=== PATIENT | male | born 1980 | race Caucasian/White ===

== ENCOUNTER 2018-08-11 14:50 | Inpatient (IN) | payer MEDICARE, OTHER ==
--- NOTE | 2018-08-11 17:19 | PDOC ---
History of Present Illness - History of Present Illness Initial Comments: Jamaal Warner is a 38yo man with a PMH of HTN, HLD, KADE, CKD and chronic back pain that radiates down b/l LE who presents reporting worsening bilateral leg weakness over several days. He reports that he has been diagnosed with herniated discs in his low back and states that he chronically has low back and radiating lower extremity pain. The pain radiates from the upper thigh down the outside of his legs, and he has been experiencing this same pain recently. However, the weakness is new. He is able to stand and ambulate a few steps, but he reports that he feels "shaky" and as though he is going to fall down. He says that even when he is just sitting up, his arms shake if he needs to support himself. Mr Warner reports that he has been drinking significantly less fluid lately, and he also reports a recent GI illness with vomiting 1-2 weeks ago. However, he has not had any other recent symptoms. He reports that he has been taking all of his medications and has been feeling well. However, he is worried about his creatinine, which is normally around 4.5 or so as he feels dehydrated and has not seen his ventilated rib fitter (out of [place]) in a while for blood tests. <Katey Dias - Last Filed: 08/11/18 18:31> <Torrie Zurita - Last Filed: 08/11/18 19:04> - General Chief Complaint: Lethargy Stated Complaint: WEAKNESS Time Seen by Provider: 08/11/18 16:19 Attending Attestation - Resident Resident Name: Katey Dias - ED Attending Attestation I have performed the following: I have examined & evaluated the patient, The case was reviewed & discussed with the resident, I agree w/resident's findings & plan, Exceptions are as noted - HPI HPI: Morbidly obese 38 y/o male complained of progressive weakness, inability to stand up worse in the last week. Has been followed by Senior Credit Officer at [facility] in [facility]. 08/11/18 18:55 - Physicial Exam PE: Morbidly obese individual extreme weakness equal breath sounds Obese abdomen Edematous extremities Full cooperating and understanding his status 08/11/18 18:57 - Critical Care Time Total Critical Care Time: 45 Critical Care Statement: The care of this patient involved high complexity decision making to prevent further life threatening deterioration of the patient 's condition and/or to evaluate & treat vital organ system(s) failure or risk of failure. - Medical Decision Making Due to the severity of his condition patient was started on medication to control his Hyperkalemia Arrangements , consults made to be transfered to ICU at [facility] via ALS ambulance. 08/11/18 19:01 <Torrie Zurita - Last Filed: 08/11/18 19:04> Past History - Past Medical History COPD: No Disorders: Yes (AZOTEMIA) HTN: Yes Hypercholesterolemia: Yes - Immunization History Td Vaccination: Yes Immunization Up to Date: Yes - Suicide/Smoking/Psychosocial Hx Smoking Status: No Smoking History: Current some day smoker Have you smoked in the past 12 months: Yes Number of Cigarettes Smoked Daily: 0 Cigars Per Day: 1 Information on smoking cessation initiated: Yes 'Breaking Loose' booklet given: 02/14/16 Hx Alcohol Use: No Drug/Substance Use Hx: No Substance Use Type: None <Katey Dias - Last Filed: 08/11/18 18:31> <Torrie Zurita - Last Filed: 08/11/18 19:04> - Past Medical History Allergies/Adverse Reactions: Allergies Allergy/AdvReac Type Severity Reaction Status Date / Time No Known Allergies Allergy Verified 08/11/18 15:20 Home Medications: Ambulatory Orders Febuxostat [Uloric -] 80 mg PO DAILY 12/14/11 Valsartan [Diovan] 160 mg PO DAILY 12/14/11 Fenofibric Acid [Trilipix -] 135 mg PO DAILY 10/30/12 Nebivolol [Bystolic -] 10 mg PO DAILY 10/30/12 Torsemide [Demadex -] 20 mg PO ASDIR PRN 08/11/18 Review of Systems - Review of Systems Comments:: General: No fevers, no chills, no weight or appetite change, no malaise HEENT: No changes in vision, no changes in hearing, no congestion, no sore throat CV: No chest pain, no palpitations, no LE edema. h/o HTN Pulm: No SOB, no cough, no wheezing GI: Recent vomiting, no change in bowel habits, no melena : h/o CKD, +makes urine Musc: No back pain, no joint swelling, no recent injury. h/o low back disc herniation, BLE radiating pain, BLE weakness Skin: No rash, no lesions, no erythema Endo: No excessive thirst, no heat/cold intolerance Heme: No unusual bruising or bleeding, no swollen glands Neuro: No syncope, no numbness/tingling, no focal weakness Vasc: No claudication Psych: No recent change in mood, no SI or HI <Katey Dias - Last Filed: 08/11/18 18:31> *Physical Exam - Vital Signs Last Vital Signs Temp Pulse Resp BP Pulse Ox 97.5 F L 98 H 18 138/81 99 08/11/18 15:13 08/11/18 16:11 08/11/18 16:11 08/11/18 16:11 08/11/18 16:11 - Physical Exam Comments: General: Uncomfortable, morbidly obese, appears older than stated age HEENT: PERRL, EOMI, MMM, voice normal, normal neck ROM, no LAD Cards: RRR Pulm: Comfortable on room air, distant breaths sounds Abd: Soft, nontender, nondistended : No CVA tenderness Back: No TTP along spine or paraspinal muscles Ext: Atraumatic. No LE edema. Strength intact at b/l knees and ankles, but unable to hold BLE up off bed. Visible trembling in extremities when bearing weight Vasc: Extremities WWP. Skin: Normal color, no rashes or lesions Neuro: A&Ox3, CN grossly intact, normal speech, motor/sensory grossly intact and symmetric Psych: Mood appropriate to situation <Katey Dias - Last Filed: 08/11/18 18:31> - Vital Signs Last Vital Signs Temp Pulse Resp BP Pulse Ox 97.5 F L 98 H 18 138/81 99 08/11/18 15:13 08/11/18 16:11 08/11/18 16:11 08/11/18 16:11 08/11/18 16:11 <Torrie Zurita S - Last Filed: 08/11/18 19:04> Moderate Sedation - Procedure Monitoring Vital Signs: Procedure Monitoring Vital Signs Temperature 97.5 F L 08/11/18 15:13 Pulse Rate 98 H 08/11/18 16:11 Respiratory Rate 18 08/11/18 16:11 Blood Pressure 138/81 08/11/18 16:11 O2 Sat by Pulse Oximetry (%) 99 08/11/18 16:11 <Katey Dias - Last Filed: 08/11/18 18:31> - Procedure Monitoring Vital Signs: Procedure Monitoring Vital Signs Temperature 97.5 F L 08/11/18 15:13 Pulse Rate 98 H 08/11/18 16:11 Respiratory Rate 18 08/11/18 16:11 Blood Pressure 138/81 08/11/18 16:11 O2 Sat by Pulse Oximetry (%) 99 08/11/18 16:11 <Torrie Zurita S - Last Filed: 08/11/18 19:04> ED Treatment Course - LABORATORY CBC & Chemistry Diagram: 08/11/18 17:10 08/11/18 17:10 <Katey Dias - Last Filed: 08/11/18 18:31> - LABORATORY CBC & Chemistry Diagram: 08/11/18 17:10 08/11/18 17:10 - ADDITIONAL ORDERS Additional order review: Laboratory Results 08/11/18 17:10 Sodium 128 L Potassium 8.2 H* Chloride 102 Carbon Dioxide 8 L Anion Gap 18 H BUN 195 H* Creatinine 18.5 H* Creat Clearance w eGFR 2.90 Random Glucose 125 H Calcium 5.7 L* Total Bilirubin 0.5 AST 153 H ALT 109 H Alkaline Phosphatase 45 Creatine Kinase 8230 H Total Protein 7.5 Albumin 3.3 L 08/11/18 17:10 RBC 3.27 L MCV 88.5 MCHC 33.0 RDW 12.5 D MPV 8.7 D Neutrophils % 89.9 H D Lymphocytes % 5.0 L D Monocytes % 3.9 Eosinophils % 0.9 Basophils % 0.3 - Medications Given in the ED: ED Medications Discontinued Medications Generic Name Dose Route Start Last Admin Trade Name Freq PRN Reason Stop Dose Admin Calcium Gluconate 1,000 mg 08/11/18 18:18 08/11/18 18:50 Calcium Gluconate 10% - IVPB 08/11/18 18:19 1,000 mg ONCE ONE Administration Dextrose 25 gm 08/11/18 18:18 08/11/18 18:42 D50w (Vial) - IVPUSH 08/11/18 18:19 25 gm NOW ONE Administration Insulin Human Regular 5 units 08/11/18 18:18 08/11/18 18:43 Novolin R Vial *For Ivpush Or Iv Drip Only* IVPUSH 08/11/18 18:19 5 units ONCE ONE Administration Sodium Polystyrene Sulfonate 30 gm 08/11/18 18:20 08/11/18 18:40 Kayexalate - PO 08/11/18 18:21 30 gm ONCE ONE Administration <YudithRem S - Last Filed: 08/11/18 19:04> Medical Decision Making - Medical Decision Making 08/11/18 17:00 Jamaal Warner is a 38yo man with a PMH of HTN, HLD, KADE, CKD and chronic back pain that radiates down b/l LE who presents reporting worsening bilateral leg weakness over several days. - No red flag symptoms such as numbness, saddle anesthesia, bowel/bladder incontinence - Per patient, only the weakness is new. He does report recent illness and he has been "laying around" most of the time. Given habitus, could be due to pressure on lower back or previously diagnosed herniated discs. Also notes decreased fluid intake recently. Could have rhabdo or worsening kidney function - Able to stand, strength 5/5 and equal b/l in lower extremities. Though patient subjectively feels weak, exam is reassuring. Most likely due to his chronic back and BLE pain 08/11/18 18:39 - Labs with significant abnormalities - Cr 18.5, BUN 195, K 8.2, Na 128, Bicarb 8 - Insulin, dextrose, calcium gluconate, kayexalate for hyperkalemia. EKG reviewed, notes peaked t waves - ICU contacted for admission for urgent dialysis. Spoke to Dr Narvaez, will accept - Spoke to Dr Brown (nephrology) regional truck driver for Dr Dimas. Will plan to see pt when in ICU. Requests ABG, boyd placement, bicarb - Hospitalist contacted for admission - Cardiology consulted due to peaked t-waves on EKG <Katey Dias - Last Filed: 08/11/18 18:31> *DC/Admit/Observation/Transfer - Discharge Dispostion Decision to Admit order: Yes <Katey Dias - Last Filed: 08/11/18 18:31> <Torrie Zurita S - Last Filed: 08/11/18 19:04> Diagnosis at time of Disposition: Hyperkalemia, Acute renal failure - Discharge Dispostion Condition at time of disposition: Critical - Referrals Referrals: Saul Warner MD [Primary Care Provider] - - Patient Instructions - Post Discharge Activity
[2018-08-11 17:37] LABS: BASO % 0.3 % (0-2.0); EOS % 0.9 % (0-4.5); HEMATOCRIT 28.9 % (35.4-49); HEMOGLOBIN 9.5 GM/dl (11.7-16.9); MCH 29.1 pg (25.7-33.7); MEAN CELL VOLUME 88.5 fl (80-96); MEAN PLT VOLUME 8.7 fl (7.5-11.1); PLATELET COUNT 381 K/MM3 (134-434); RBC 3.27 M/mm3 (4.00-5.60); RDW 12.5 % (11.9-15.9); WHITE BLOOD COUNT 12.4 K/mm3 (4.0-10.8)
[2018-08-11 17:40] LABS: MONO % 3.9 % (3.8-10.2); NEUT % 89.9 % (42.8-82.8)
[2018-08-11 17:46] LABS: ALBUMIN 3.3 g/dl (3.4-5.0); ALK PHOS 45 U/L (45-117); ANION GAP 18 MMOL/L (8-16); BILIRUBIN,TOTAL 0.5 mg/dl (0.2-1); CHLORIDE 102 mmol/L (98-107); CO2 8 mmol/L (21-32); GLUCOSE,RANDOM 125 mg/dl (74-106); SGOT/AST 153 U/L (15-37); SGPT/ALT 109 U/L (13-61); SODIUM 128 mmol/L (136-145); TOT PROT 7.5 g/dl (6.4-8.2)
[2018-08-11 18:07] LABS: BLOOD UREA NITROGEN 195 mg/dl (7-18); CREATININE 18.5 mg/dl (0.55-1.3)
[2018-08-11 18:08] LABS: CALCIUM 5.7 mg/dl (8.5-10); POTASSIUM 8.2 mmol/L (3.5-5.1)
[2018-08-11] MEDS ORDERED: CALCIUM GLUCONATE 10% - 1,000 MG/10 ML VIAL IVPB ONE (18:18)
[2018-08-11] MEDS ORDERED: INSULIN REGULAR HUMAN 100 UNITS/ML *VIAL IVPUSH ONE ×2 (18:18→22:30)
[2018-08-11] MEDS ORDERED: DEXTROSE 50%-WATER - 25 GM/50 ML VIAL IVPUSH ONE ×2 (18:18→22:30)
[2018-08-11] MEDS ORDERED: SODIUM POLYSTYRENE SULFONATE 15 GM/60 ML BOTTLE PO ONE ×2 (18:20→22:45)
[2018-08-11] MEDS ORDERED: CALCIUM GLUCONATE 10% - 1,000 MG/10 ML VIAL ONE (18:29)
[2018-08-11] MEDS ORDERED: DEXTROSE 50%-WATER 25 GM/50 ML DISP.SYRIN ONE (18:30)
[2018-08-11] MEDS ORDERED: SODIUM BICARBONATE 4.2% 5 MEQ/10 ML DISP.SYRIN IVPUSH ONE (18:30)
[2018-08-11] MEDS ORDERED: SODIUM POLYSTYRENE SULFONATE 15 GM/60 ML BOTTLE ONE (18:30)
[2018-08-11] MEDS ORDERED: INSULIN REGULAR HUMAN 100 UNITS/ML *VIAL ONE (18:33)
[2018-08-11] MEDS ORDERED: SODIUM BICARBONATE 8.4% 50 MEQ/50 ML VIAL ONE (18:54)
[2018-08-11 19:34] LABS: URINE APPEARANCE Clear; URINE BILIRUBIN Negative (NEGATIVE); URINE COLOR Yellow; URINE GLUCOSE (UA) Negative (NEGATIVE); URINE KETONE Negative (NEGATIVE); URINE LEUK ESTERASE 1+ (NEGATIVE); URINE NITRITE Negative (NEGATIVE); URINE PROTEIN 3+ (NEGATIVE); URINE UROBILINOGEN 0.2 (0.2-1.0)
[2018-08-11] MEDS ORDERED: SODIUM BICARBONATE 8.4% 50 MEQ/50 ML DISP.SYRIN IVPUSH ONE (19:53)
[2018-08-11 19:55] LABS: AMORP URATES 4+ /hpf (NONE SEEN)
[2018-08-11 19:56] LABS: URINE BACTERIA 4+ /hpf (NEGATIVE)
[2018-08-11 20:05] LABS: ANION GAP 19 MMOL/L (8-16); CHLORIDE 103 mmol/L (98-107); CO2 9 mmol/L (21-32); GLUCOSE,RANDOM 99 mg/dl (74-106); SODIUM 131 mmol/L (136-145)
[2018-08-11 20:16] LABS: BLOOD UREA NITROGEN 200 mg/dl (7-18)
[2018-08-11 20:17] LABS: CREATININE 17.9 mg/dl (0.55-1.3); POTASSIUM 7.6 mmol/L (3.5-5.1)
[2018-08-11 20:18] LABS: CALCIUM 5.9 mg/dl (8.5-10)
[2018-08-11] MEDS ORDERED: ACETAMINOPHEN INJECTION 100 ML IVPB ONE (20:34)
--- NOTE | 2018-08-11 20:46 | CONSULT ---
Consult Consult Specialty:: Nephrology ( [facility]/ [facility]) Reason for Consultation:: Renal failure, severe azotemia, Hyperkalemia - History of Present Illness Chief Complaint: Morbidly obese male patient brought [place] [facility] with generalized weakness, especially of the legs. History of Present Illness: Jamaal Warner is a 38yo man with a PMH of HTN, HLD, KADE, CKD, Gout and Chronic back pain that radiates down b/l LE who presents reporting worsening bilateral leg weakness over several days. He has herniated discs in his low back and states that he chronically has low back and radiating lower extremity pain. The pain radiates from the upper thigh down the outside of his legs, and he has been experiencing this same pain recently. The weakness is new. He is able to stand and ambulate a few steps, but he reports that he feels "shaky" and as though he is going to fall down. He says that even when he is just sitting up, his arms shake if he needs to support himself. He had a kidney [place] [facility] [place] 3 years ago, but had not followed up since. He is not quite sure of the biopsy results. He had not been seeing a Vp Biology in [place]. His PCP is Dr. Warner and he also sees dr. Lozada. Mr Warner reports that he has been drinking significantly less fluid lately, and he also reports a recent GI illness with vomiting 1-2 weeks ago. However, he has not had any other recent symptoms. He reports that he has been taking all of his medications and has been feeling well. However, he is worried about his creatinine, which is normally around 4.5 or so as he feels dehydrated and has not seen his Vp Biology (out [facility] ) in a while for blood tests. The last blood work is 3 years ago. Denies any urinary incontinence. no h/o hematuria. - History Source History Provided By: Patient, Family Member Limitations to Obtaining History: No Limitations - Past Medical History Gastrointestinal: No: Constipation, Hiatal Hernia, Peptic Ulcer Disease, Ulcerative Colitis Renal/: Yes: Renal Failure Heme/Onc: Yes: Anemia Psych: Yes: Anxiety Musculoskeletal: Yes: Chronic low back pain, Osteoarthritis - Past Surgical History Past Surgical History: Yes: Joint Replacement - Alcohol/Substance Use Hx Alcohol Use: No - Smoking History Smoking history: Current some day smoker Have you smoked in the past 12 months: Yes Aproximately how many cigarettes per day: 0 Home Medications - Allergies Allergies/Adverse Reactions: Allergies Allergy/AdvReac Type Severity Reaction Status Date / Time No Known Allergies Allergy Verified 08/11/18 15:20 - Home Medications Home Medications: Ambulatory Orders Febuxostat [Uloric -] 80 mg PO DAILY 12/14/11 Valsartan [Diovan] 160 mg PO DAILY 12/14/11 Fenofibric Acid [Trilipix -] 135 mg PO DAILY 10/30/12 Nebivolol [Bystolic -] 10 mg PO DAILY 10/30/12 Torsemide [Demadex -] 20 mg PO ASDIR PRN 08/11/18 Review of Systems - Review of Systems Constitutional: reports: Malaise, Weakness Eyes: reports: No Symptoms HENT: reports: No Symptoms Neck: reports: No Symptoms Cardiovascular: reports: Shortness of Breath Respiratory: reports: SOB Gastrointestinal: denies: Constipation, Diarrhea Musculoskeletal: reports: Back Pain, Decreased ROM, Extremity Pain, Joint Pain, Muscle Pain Neurological: reports: Unsteady Gait Physical Exam Vital Signs: Vital Signs Temperature 97.5 F L 08/11/18 15:13 Pulse Rate 104 H 08/11/18 19:30 Respiratory Rate 18 08/11/18 19:30 Blood Pressure 152/96 08/11/18 19:30 O2 Sat by Pulse Oximetry (%) 97 08/11/18 19:30 Constitutional: Yes: Well Nourished, Anxious Eyes: Yes: Conjunctiva Clear HENT: Yes: Atraumatic, Normocephalic Neck: Yes: Trachea Midline Cardiovascular: Yes: Regular Rate and Rhythm, Tachycardia, S1, S2 Respiratory: Yes: Diminished, Poor Air Entry Gastrointestinal: Yes: Soft, Abdomen, Obese, Distention, Hypoactive Bowel Sounds Renal/: Yes: Oreilly Present. No: CVA Tenderness - Left, CVA Tenderness - Right Edema: No Psychiatric: Yes: Alert, Oriented Labs: CBC, BMP 08/11/18 17:10 08/11/18 19:35 Problem List - Problems (1) CKD (chronic kidney disease) stage 5, GFR less than 15 ml/min Code(s): N18.5 - CHRONIC KIDNEY DISEASE, STAGE 5 (2) Hypocalcemia Code(s): E83.51 - HYPOCALCEMIA (3) Acute renal failure Code(s): N17.9 - ACUTE KIDNEY FAILURE, UNSPECIFIED (4) Hyperkalemia Code(s): E87.5 - HYPERKALEMIA (5) Anemia Code(s): D64.9 - ANEMIA, UNSPECIFIED Assessment/Plan 38 y/o male with h/o CKD,with erratic medical follow up, admitted with profound azotemia, Hyperkalemia, metabolic acidosis and symptoms of uremia. Severe Azotemia possibly progression of his underlying CKd, but one can not totally r/o a superimposed Acute Kidney Injury. Profound Hyperkalemia. This is worsened by the Metabolic acidosis. PLAN: The patient needs EMERGENCY DIALYSIS in view of the azotemia, hyperkalemia and Metabolic acidosis. Vascular evaluation to place a Femoral catheter for dialysis. Cautious Hydration. Detailed w/u once the patient is stable. Orders for HD written and reviewed with the HD nurse. Jaimie Sanches MD
[2018-08-11] MEDS ORDERED: ALBUTEROL SO4 0.083% IH SOL 2.5 MG/3 ML VIAL.NEB. NEB PRN (20:51)
[2018-08-11] MEDS ORDERED: ACETAMINOPHEN 1000 MG/100 ML VIAL (NON FORMULARY) IVPB ONE (21:02)
--- NOTE | 2018-08-11 21:42 | HP ---
Admitting History and Physical - Admission Chief Complaint: Lower extremity weakness History of Present Illness: 38yo man with a PMH of HTN, HLD, KADE, CKD and chronic back pain with radiculopathy presents to ED due to worsening malaise and paresthesias in b/l LEs. PT reports viral syndrome approximately two weeks ago where he experienced nausea, fever and chills. Symptoms resolved after rest and oral hydration. However, He reports cutting back on his oral intake due to his underlying kidney disease. Over the last three days, Mr. Warner reports "feeling unsteady" on his feet, associated with progressive paresthesias and generalized weakness. He has never experienced symptoms like this prior and Pt was taken to ED on the afternoon of 08/11 by a cousin. In ED vitals were HR 98bpm, BP 138/81, RR 18, T 97.5, O2 sat 99%. Routine labs: BUN/CR 195/18.5, K 8.2, Na 128, serum bicarb 8, calcium 5.7, AST/ ALT 153/109. CPK 8230 Insulin, dextrose, calcium gluconate, kayexalate for hyperkalemia. EKG SR 96bpm with peaked t waves. Nephrology was consulted for acute renal failure with hyperkalemia, recommendation was ICU admission for urgent dialysis. 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: Alzheimer's, CVA, Dementia, Migraine, Multiple Sclerosis, Peripheral Neuropathy, Parkinson's, Seizure, Syncope, TIA, Vertigo, Other Cardiovascular: Yes: HTN, Hyperlipdemia Gastrointestinal: No: Constipation, Hiatal Hernia, Peptic Ulcer Disease, Ulcerative Colitis Renal/: Yes: Renal Failure, Renal Inusuff Heme/Onc: Yes: Anemia Psych: Yes: Anxiety Musculoskeletal: Yes: Chronic low back pain, Osteoarthritis Rheumatology: Yes: Gout ENT: Yes: Allergic Rhinitis Additional Past Medical History: herniated disc lumbar spine - Past Surgical History Past Surgical History: Yes: Joint Replacement (Left knee arthroscopic surgery 2005) - Smoking History Smoking history: Current some day smoker Have you smoked in the past 12 months: No Aproximately how many cigarettes per day: 0 (smokes a cigar once every two weeks ) - Alcohol/Substance Use Hx Alcohol Use: No History of Substance Use: reports: None - Social History Usual Living Arrangement: Yes: With Parent ADL: Independent Occupation: on disability due to chronic back pain History of Recent Travel: No Other Social History: Exercise: none Home Medications - Allergies Allergies/Adverse Reactions: Allergies Allergy/AdvReac Type Severity Reaction Status Date / Time No Known Allergies Allergy Verified 08/11/18 15:20 - Home Medications Home Medications: Ambulatory Orders Febuxostat [Uloric -] 80 mg PO DAILY 12/14/11 Valsartan [Diovan] 160 mg PO DAILY 12/14/11 Fenofibric Acid [Trilipix -] 135 mg PO DAILY 10/30/12 Nebivolol [Bystolic -] 10 mg PO DAILY 10/30/12 Torsemide [Demadex -] 20 mg PO ASDIR PRN 08/11/18 Family Disease History - Family Disease History Family History: Unremarkable Review of Systems - Review of Systems Constitutional: reports: Malaise, Weakness Eyes: reports: No Symptoms HENT: reports: No Symptoms Neck: reports: No Symptoms Cardiovascular: reports: No Symptoms Respiratory: reports: Snoring Genitourinary: reports: No Symptoms Breasts: reports: No Symptoms Reported Musculoskeletal: reports: Back Pain, Muscle Weakness Integumentary: reports: No Symptoms Neurological: reports: Parasthesia, Unsteady Gait, Weakness Endocrine: reports: No Symptoms Hematology/Lymphatic: reports: No Symptoms Psychiatric: reports: No Symptoms Physical Examination Vital Signs: Vital Signs Temperature 97.5 F L 08/11/18 15:13 Pulse Rate 105 H 08/11/18 20:30 Respiratory Rate 18 08/11/18 20:30 Blood Pressure 123/68 08/11/18 20:30 O2 Sat by Pulse Oximetry (%) 97 08/11/18 20:30 Constitutional: Yes: No Distress, Calm Eyes: Yes: Conjunctiva Clear, EOM Intact, PERRL HENT: Yes: Atraumatic, Normocephalic Neck: Yes: Supple, Trachea Midline Cardiovascular: Yes: Tachycardia Respiratory: Yes: Regular, CTA Bilaterally, Diminished (at the bases) Gastrointestinal: Yes: Normal Bowel Sounds, Soft, Abdomen, Obese ...Rectal Exam: Yes: Deferred Renal/: Yes: Oreilly Present Musculoskeletal: Yes: Back Pain, Muscle Weakness Extremities: Yes: Other (scattered areas of excoriation b/l LEs) Edema: No Peripheral Pulses WNL: Yes Peripheral Pulses: Left Radial: 2+, Right Radial: 2+, Left Doralis Pedis: 2+, Right Dorsalis Pedis: 2+ Neurological: Yes: Alert, Oriented ...Motor Strength: WNL Psychiatric: Yes: Alert, Oriented Labs: CBC, BMP 08/11/18 17:10 08/11/18 19:35 Imaging - Results Chest X-ray: Image Reviewed (CXR 08/11/18 (my read) increased pulm congestion) Problem List - Problems (1) Prophylactic measure Assessment/Plan: SC heparin TID SCDs bowel regimen with senna and colace Code(s): Z29.9 - ENCOUNTER FOR PROPHYLACTIC MEASURES, UNSPECIFIED (2) HTN (hypertension) Assessment/Plan: hold valsartan, current BP range (97/78--152/96) pt tachycardic, will start low dose BB. goal BP < 130/80 cardiac/renal diet Code(s): I10 - ESSENTIAL (PRIMARY) HYPERTENSION (3) Acute renal failure Assessment/Plan: admit to ICU for urgent dialysis pt amenable to vascath insertion for CRRT nephrology recommendations appreciated fluid restrict 1.5L per day renal sono Code(s): N17.9 - ACUTE KIDNEY FAILURE, UNSPECIFIED (4) CKD (chronic kidney disease) stage 5, GFR less than 15 ml/min Assessment/Plan: all meds at renal dose hold valsartan and torsemide Code(s): N18.5 - CHRONIC KIDNEY DISEASE, STAGE 5 (5) Hyperkalemia Assessment/Plan: K trend: 8.5>>7.6 repeat kayexalate 45gm/bicarb 1amp/D50/insulin 10units repeat dosing while awaiting vascath placement for HD Urine electrolytes ordered Code(s): E87.5 - HYPERKALEMIA Visit type - Emergency Visit Emergency Visit: Yes Care time: The patient presented to the Emergency Department on the above date and was hospitalized for further evaluation of their emergent condition. - New Patient This patient is new to me today: Yes Date on this admission: 08/11/18 - Critical Care Critical Care patient: Yes Total Critical Care Time (in minutes): 45 Critical Care Statement: The care of this patient involved high complexity decision making to prevent further life threatening deterioration of the patient 's condition and/or to evaluate & treat vital organ system(s) failure or risk of failure.
[2018-08-11] MEDS ORDERED: SENNOSIDES 8.6MG TABLET (FP) PO PRN (21:46)
[2018-08-11] MEDS ORDERED: CHLORHEXIDINE GLUCONATE 4% CLEANSER FOR DECOLONIZATION TP SCH (22:00)
[2018-08-11] MEDS ORDERED: MUPIROCIN 2% TOPICAL OINTMENT FOR DECOLONIZATION NS SCH (22:00)
[2018-08-11] MEDS ORDERED: SODIUM BICARBONATE 8.4% 50 MEQ/50 ML VIAL IVPUSH ONE (22:30)
[2018-08-11] MEDS ORDERED: morphine SULFATE 4 MG/ML VIAL ONE (23:59)
--- NOTE | 2018-08-12 00:10 | CON.CARD ---
Consult Consult Specialty:: cardiology Reason for Consultation:: hyperkalemia; ESRD - History of Present Illness Chief Complaint: Pt alert; c/o LE muscle ache; no chest pain or dyspnea History of Present Illness: Pt is a 38yo man with a PMH of HTN, morbid obesity, diastolic CHF, HLD, KADE, CKD and chronic back pain that radiates down b/l LE who presents reporting worsening bilateral leg weakness over several days. He reports that he has been diagnosed with herniated discs in his low back and states that he chronically has low back and radiating lower extremity pain. The pain radiates from the upper thigh down the outside of his legs, and he has been experiencing this same pain recently. However, the weakness is new. He is able to stand and ambulate a few steps, but he reports that he feels "shaky" and as though he is going to fall down. He says that even when he is just sitting up, his arms shake if he needs to support himself. Mr Warner reports that he has been drinking significantly less fluid lately, and he also reports a recent GI illness with vomiting 1-2 weeks ago. However, he has not had any other recent symptoms. He reports that he has been taking all of his medications and has been feeling well. However, he is worried about his creatinine, which is normally around 4.5 or so as he feels dehydrated and has not seen his hourly shift manager (out [facility]) in a while for blood tests. 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: Alzheimer's, CVA, Dementia, Migraine, Multiple Sclerosis, Peripheral Neuropathy, Parkinson's, Seizure, Syncope, TIA, Vertigo, Other Cardio/Vascular: Yes: HTN, Hyperlipdemia Gastrointestinal: No: Constipation, Hiatal Hernia, Peptic Ulcer Disease, Ulcerative Colitis Renal/: Yes: Renal Failure, Renal Inusuff Psych: Yes: Anxiety Musculoskeletal: Yes: Chronic low back pain, Osteoarthritis Rheumatology: Yes: Gout ENT: Yes: Allergic Rhinitis - Past Surgical History Past Surgical History: Yes: Joint Replacement (Left knee arthroscopic surgery 2005) - Alcohol/Substance Use Hx Alcohol Use: No History of Substance Use: reports: None - Smoking History Smoking history: Current some day smoker Have you smoked in the past 12 months: No Aproximately how many cigarettes per day: 0 (smokes a cigar once every two weeks ) - Social History ADL: Independent Occupation: on disability due to chronic back pain History of Recent Travel: No Home Medications - Allergies Allergies/Adverse Reactions: Allergies Allergy/AdvReac Type Severity Reaction Status Date / Time No Known Allergies Allergy Verified 08/11/18 15:20 - Home Medications Home Medications: Ambulatory Orders Fenofibric Acid [Trilipix -] 135 mg PO DAILY 10/30/12 Calcitriol [Calcitriol -] 0.5 mcg PO DAILY #30 tab MDD 1 08/14/18 Calcium Acetate [Phoslo -] 1,334 mg PO TIDCM #30 capsule MDD 3 08/14/18 Furosemide [Lasix -] 80 mg PO DAILY #30 tablet MDD 1 08/14/18 Metoprolol Tartrate [Lopressor -] 50 mg PO BID #60 tablet MDD 2 08/14/18 Nifedipine ER [Procardia XL -] 30 mg PO DAILY #30 tab.er.24 MDD 1 08/14/18 Review of Systems - Review of Systems Constitutional: reports: No Symptoms Eyes: reports: No Symptoms HENT: reports: No Symptoms Neck: reports: No Symptoms Cardiovascular: reports: No Symptoms Respiratory: reports: No Symptoms Gastrointestinal: reports: No Symptoms Genitourinary: reports: No Symptoms Breasts: reports: No Symptoms Reported Musculoskeletal: reports: Muscle Pain, Muscle Weakness Integumentary: reports: No Symptoms Neurological: reports: Weakness Endocrine: reports: No Symptoms Hematology/Lymphatic: reports: No Symptoms Psychiatric: reports: Anxiety - Risk Factors Known Risk Factors: Yes: Age, Family History, Gender, Hypercholesterolemia, Hypertension, Physical Inactivity, Other (morbid obesity; CKD) Vital Signs: Vital Signs Temperature 98.2 F 08/11/18 22:12 Pulse Rate 105 H 08/11/18 22:12 Respiratory Rate 18 08/11/18 22:12 Blood Pressure 127/67 08/11/18 22:12 O2 Sat by Pulse Oximetry (%) 97 08/11/18 20:30 Abnormal Lab Results 08/14/18 08/14/18 08/14/18 06:00 11:40 11:40 RBC 2.77 L Hgb 8.3 L Hct 24.7 L BUN 118 H* Creatinine 13.8 H* Calcium 7.0 L Phosphorus 9.2 H* Triglycerides 325 H HDL Cholesterol 28 L Constitutional: Yes: Anxious, Obese Eyes: Yes: WNL HENT: Yes: WNL Neck: Yes: WNL Respiratory: Yes: WNL, SOB on Exertion Gastrointestinal: Yes: Hemorrhoids Murmur: Yes: Systolic Murmur, Grade 1 Musculoskeletal: Yes: Back Pain, Joint Stiffness, Muscle Pain, Muscle Weakness Extremities: Yes: Cool Edema: Yes Edema: LLE: Trace, RLE: Trace Peripheral Pulses WNL: Yes Integumentary: Yes: Tattoos Neurological: Yes: Alert, Oriented, Weakness Psychiatric: Yes: WNL - Other Data Labs, Other Data: CBC, BMP 08/11/18 17:10 08/11/18 19:35 Abnormal Lab Results 08/14/18 08/14/18 08/14/18 06:00 11:40 11:40 RBC 2.77 L Hgb 8.3 L Hct 24.7 L BUN 118 H* Creatinine 13.8 H* Calcium 7.0 L Phosphorus 9.2 H* Triglycerides 325 H HDL Cholesterol 28 L Ejection Fraction %: LVEF > or = 40 % Imaging - Results Chest X-ray: Image Reviewed (no acute pathology) Problem List - Problems (1) Renal failure Assessment/Plan: For urgent hemodialysis. Code(s): N19 - UNSPECIFIED KIDNEY FAILURE (2) Morbid obesity Code(s): E66.01 - MORBID (SEVERE) OBESITY DUE TO EXCESS CALORIES (3) Hyperlipidemia Assessment/Plan: on Triplix for hypertriglyceridemia. Start statin, if not already on it, if LFTs normalize from present elevated levels (were normal in 2017); keep LDL cholesterol < 70 mg/dL (was > 90 in 2016) . Code(s): E78.5 - HYPERLIPIDEMIA, UNSPECIFIED (4) CHF (congestive heart failure) Assessment/Plan: On metoprolol (hx Bystolic use). ARB held (hyperkalemia; renal failure). Pt has been on Demedex. F/u ECHO for LVEF, wall thicknesses and motion; valve status. Code(s): I50.9 - HEART FAILURE, UNSPECIFIED (5) HTN (hypertension) Assessment/Plan: On metoprolol. ACEI held (renal failure; hyperkalemia). For ECHO: check LVEF, wall thickness and motion; valve status, chamber sizes. Code(s): I10 - ESSENTIAL (PRIMARY) HYPERTENSION (6) Hyperkalemia Assessment/Plan: K+ : 8.2. EKG: NSR; peaked T waves. Per ER, pt has been given IV glucose D50, sodium bicarbonate, IV calcium,, insulin, Kayexalate. F/u K+; repeat above combination if necessary. Pt requires emergency hemodialysis. Code(s): E87.5 - HYPERKALEMIA (7) Hypocalcemia Assessment/Plan: replete. Code(s): E83.51 - HYPOCALCEMIA (8) Sleep apnea Assessment/Plan: Treatment per curriculum and assessment coordinator. Code(s): G47.30 - SLEEP APNEA, UNSPECIFIED (9) [place] cardiac risk >20% in next 10 years Assessment/Plan: F/u records from [facility]. If not done recently, will require coronary artery evaluation when stable. Code(s): Z91.89 - OTH PERSONAL RISK FACTORS, NOT ELSEWHERE CLASSIFIED Assessment/Plan CCU time spent ealuating pt and formulatin plan: 75 mnutes.
[2018-08-12] MEDS ORDERED: MORPHINE SULFATE 2 MG/ML VIAL IVPUSH ONE (00:13)
--- NOTE | 2018-08-12 00:20 | CONSULT ---
Consult Consult Specialty:: ICU Referred by:: Arun Reason for Consultation:: Hyperkalemia - History of Present Illness Chief Complaint: LE weakness History of Present Illness: 38 yr old man with a HTN, obesity, CKD and gout presents with b/l leg weakness a /w hand numbess for past few weeks, progressively getting worse with inability to stand and constant pain for past 2 days. had flu-like symptoms 2 weeks ago that have resolved. notes decr urination, incr dyspnea on exertion, pruritis o his upper arms and legs, decr appetite with unintentional weightloss, nausea with occasional retching of water for past 3 weeks. he has been unable to drink as much as he used to, went from almost 3gal daily to 1gal daily, was urinating about every 1hr but now does not urinate for 5-6hrs at a time, normal stream but amount is decr. denies hematuria, dysuria, discharge, hematochezia, constipation, diarrhea , melena. had a renal bx 2 yrs ago and recalls being told his CKD was due to his obesity. thinks it may have been due to his prolonged use of colchicine daily for 6-7 yrs for his gout. does not take his torsemide daily. 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 Denies recent travel, change in medications, chest pain, palpitations, abdominal pain, fevers, maliase. Surghx: left knee arthroplasty 2005. Pmhx: CKD, HTN, gout, obesity. Denies LA/CVA/cancers Fmhx: father with DM, mother with "unknown breast mass - possibly cancer, had lumpectomy and was fine, did not require chmx or RT", brother with "unknown colon mass" that was removed- unsure if it was malignant. 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, CVA, Dementia, Migraine, Multiple Sclerosis, Peripheral Neuropathy, Parkinson's, Seizure, Syncope, TIA, Vertigo, Other Cardio/Vascular: Yes: HTN, Hyperlipdemia Gastrointestinal: No: Constipation, Hiatal Hernia, Peptic Ulcer Disease, Ulcerative Colitis Renal/: Yes: Renal Failure, Renal Inusuff Psych: Yes: Anxiety Musculoskeletal: Yes: Chronic low back pain, Osteoarthritis Rheumatology: Yes: Gout ENT: Yes: Allergic Rhinitis - Past Surgical History Past Surgical History: Yes: Joint Replacement (Left knee arthroscopic surgery 2005) - Alcohol/Substance Use Hx Alcohol Use: No History of Substance Use: reports: None - Smoking History Smoking history: Current some day smoker Have you smoked in the past 12 months: No Aproximately how many cigarettes per day: 0 (smokes a cigar once every two weeks ) - Social History ADL: Independent Occupation: on disability due to chronic back pain History of Recent Travel: No Home Medications - Allergies Allergies/Adverse Reactions: Allergies Allergy/AdvReac Type Severity Reaction Status Date / Time No Known Allergies Allergy Verified 08/11/18 15:20 - Home Medications Home Medications: Ambulatory Orders Febuxostat [Uloric -] 80 mg PO DAILY 12/14/11 Valsartan [Diovan] 160 mg PO DAILY 12/14/11 Fenofibric Acid [Trilipix -] 135 mg PO DAILY 10/30/12 Nebivolol [Bystolic -] 10 mg PO DAILY 10/30/12 Torsemide [Demadex -] 20 mg PO ASDIR PRN 08/11/18 Physical Exam Vital Signs: Vital Signs Temperature 98.2 F 08/11/18 22:12 Pulse Rate 105 H 08/11/18 22:12 Respiratory Rate 18 08/11/18 22:12 Blood Pressure 127/67 08/11/18 22:12 O2 Sat by Pulse Oximetry (%) 97 08/11/18 20:30 Labs: CBC, BMP 08/11/18 17:10 08/11/18 19:35 Assessment/Plan 38 yr old man with CKD, obesity presents with LE weakness found to have acute renal failure with sever hyperkalemia requiring urgent dialysis. - Renal - GRACIA on CKD with hyperkalemia with proteinuria - has trialysis on the right with placed 08/12/2018, s/p 1 tx of HD and medical management(insulin+Dw50+Ca gluc+kayex) prior at [place] for hyperkalemia - renal ultrasound, and urine studies for further evaluation of acute decline - boyd monitoring for UOP - nephro consult: Dr. Sanches Hematology - normocytic anemia anemia w/u leukocytsis likely reactive, low suspicion for infection - Endocrine - r/o DM, A1c normal - labs sent for thyroid dysfunction GI - transminitis: maybe congestive hepatapothy, trend post-HD - check hepatitis panel Rheum - gout, uloric on hold due to gracia - check uric acid - Cardio - does not take his demadex and has not taken his bystolic in "some time", pressures low post-dialysis, hold home diovan due to renal dysfxn - lopressor 25mg po bid for BP control if elevated - Prophylaxis - heparin TID - Fluids, electrolytes, nutrition (FEN) severe HyperK+ now s/p HD, reeval for further treatments - had 1,926cc removed during HD, fluid restriction 1.5L - cardiac/renal diet
--- NOTE | 2018-08-12 01:16 | PROC ---
Central Line Insertion Indication: Other (Emergent dialysis) Risks and Benefits Explained: Yes Consent on Chart: Yes Central Line: Dialysis Cath, Tri Lumen Anesthesia: 1% Lidocaine Sterile Technique: Yes Ultrasound Guided Assistance: Yes Position: Right Internal Jugular Post Insertion: Yes: Bilateral Breath Sounds, Bilateral Chest Expansion, Chest X-Ray Ordered (Appropriate placement, no pneumothorax) Sterile Dressing Applied: Yes Remarks: Called to ICU for placement of a trialysis catheter for emergent dialysis due to hyperkalemia. Procedure completed as per procedure note without complication. Patient left in care of Dr Benites, pending x-ray. X-ray shows appropriate placement with no pneumothorax.
[2018-08-12] MEDS: FENOFIBRIC ACID 135 MG CAP PO SCH ×2 (01:17→09:37)
[2018-08-12] MEDS: METOPROLOL TARTRATE 50 MG TABLET (FP) PO SCH ×3 (01:17→21:50)
[2018-08-12] MEDS: HEPARIN NA (PORCINE) 5,000 UNITS/ML 1ML VIAL SQ SCH ×4 (01:17→21:50)
[2018-08-12] MEDS: DOCUSATE SODIUM 100 MG CAPSULE (FP) PO SCH ×4 (01:17→21:51)
[2018-08-12] MEDS: MUPIROCIN 2% TOPICAL OINTMENT FOR DECOLONIZATION NS SCH ×2 (01:18→17:01)
[2018-08-12 01:59] LABS: URINE APPEARANCE CLOUDY; URINE BILIRUBIN NEGATIVE (<2.0 mg/dL); URINE COLOR LTYELLOW; URINE GLUCOSE (UA) NEGATIVE (NEGATIVE); URINE KETONE NEGATIVE (NEGATIVE); URINE LEUK ESTERASE 1+ (NEGATIVE); URINE NITRITE NEGATIVE (NEGATIVE); URINE PROTEIN 2+ (NEGATIVE); URINE UROBILINOGEN NEGATIVE mg/dL (0.2-1.0)
[2018-08-12 02:13] LABS: AMORP URATES 1+ /hpf (NONE SEEN); EPI CELLS FEW /HPF (FEW); URINE BACTERIA RARE /hpf (NONE SEEN); URINE MUCUS RARE
[2018-08-12 02:35] LABS: MAGNESIUM 1.9 mg/dL (1.8-2.4)
[2018-08-12 02:36] LABS: ANION GAP 17 MMOL/L (8-16); CHLORIDE 103 mmol/L (98-107); CO2 14 mmol/L (21-32); GLUCOSE,RANDOM 94 mg/dL (74-106); SODIUM 134 mmol/L (136-145)
[2018-08-12 02:50] LABS: BLOOD UREA NITROGEN 169 mg/dL (7-18); CALCIUM 5.5 mg/dL (8.5-10.1); CREATININE 17.3 mg/dL (0.55-1.3); POTASSIUM 6.6 mmol/L (3.5-5.1)
[2018-08-12 05:59] LABS: BASO % 0.5 % (0-2.0); HEMATOCRIT 24.9 % (35.4-49); HEMOGLOBIN 8.6 GM/dL (11.7-16.9); LYMPH % 9.7 % (8-40); MCH 29.8 pg (25.7-33.7); MCHC 34.7 g/dl (32.0-35.9); MEAN CELL VOLUME 86.1 fl (80-96); MONO % 7.4 % (3.8-10.2); NEUT % 81.4 % (42.8-82.8); PLATELET COUNT 333 K/MM3 (134-434); RDW 13.1 % (11.9-15.9); WHITE BLOOD COUNT 8.1 K/mm3 (4.0-10.0)
[2018-08-12 06:31] LABS: ALK PHOS 47 U/L (45-117); ANION GAP 13 MMOL/L (8-16); BILIRUBIN,DIRECT 0.3 mg/dL (0.0-0.2); BILIRUBIN,TOTAL 0.7 mg/dL (0.2-1); CHLORIDE 100 mmol/L (98-107); CO2 21 mmol/L (21-32); GLUCOSE,RANDOM 96 mg/dL (74-106); POTASSIUM 4.1 mmol/L (3.5-5.1); SGOT/AST 170 U/L (15-37); SGPT/ALT 130 U/L (13-61); SODIUM 134 mmol/L (136-145); TOT PROT 7.3 g/dl (6.4-8.2)
[2018-08-12 06:34] LABS: BLOOD UREA NITROGEN 121 mg/dL (7-18); CREATININE 13.5 mg/dL (0.55-1.3)
[2018-08-12 06:35] LABS: CALCIUM 6.3 mg/dL (8.5-10.1)
[2018-08-12 07:03] LABS: URIC ACID 4.3 mg/dL (2.6-7.2)
--- NOTE | 2018-08-12 08:04 | PN ---
Physical Exam: SUBJECTIVE: Patient seen and examined at bed side , no acute events over night tolerated HD with no complication OBJECTIVE: Vital Signs Period Temp Pulse Resp BP Sys/Vargas Pulse Ox Last 24 Hr 97.5 F-98.8 F 93-109 16-28 92-152/43-96 96-100 GENERAL: AAOx3 in NAD HEAD: NC/AT EYES: PERRL, extraocular movements intact, sclera anicteric, ENT: MMM NECK: Trachea midline, supple. LUNGS: Breath sounds equal, clear to auscultation bilaterally, no wheezes, no crackles, no accessory muscle use. HEART: Regular rate and rhythm, S1, S2 without murmur, rub or gallop. ABDOMEN: Soft,obese nontender, nondistended, normoactive bowel sounds, EXTREMITIES: 2+ pulses, warm, well-perfused, no edema. NEUROLOGICAL: no focal deficit . Normal speech, gait not observed. PSYCH: Normal mood, normal affect. SKIN: Warm, dry, Laboratory Results - last 24 hr 08/11/18 08/11/18 08/11/18 17:10 17:10 19:29 WBC 12.4 H RBC 3.27 L Hgb 9.5 L Hct 28.9 L D MCV 88.5 MCH 29.1 MCHC 33.0 RDW 12.5 D Plt Count 381 D MPV 8.7 D Absolute Neuts (auto) 11.2 Neutrophils % 89.9 H D Lymphocytes % 5.0 L D Monocytes % 3.9 Eosinophils % 0.9 Basophils % 0.3 Nucleated RBC % PTT (Actin FS) Sodium 128 L Potassium 8.2 H* Chloride 102 Carbon Dioxide 8 L Anion Gap 18 H BUN 195 H* Creatinine 18.5 H* Creat Clearance w eGFR 2.90 Random Glucose 125 H Hemoglobin A1c % Lactic Acid Uric Acid Calcium 5.7 L* Phosphorus Magnesium Ferritin Total Bilirubin 0.5 Direct Bilirubin AST 153 H ALT 109 H Alkaline Phosphatase 45 Creatine Kinase 8230 H Creatine Kinase Index 2.8 CK-MB (CK-2) 231.5 H B-Natriuretic Peptide Total Protein 7.5 Albumin 3.3 L TSH Resin T3 Uptake Urine Color Yellow Urine Appearance Clear Urine pH 5.0 Ur Specific [place] 1.025 Urine Protein 3+ H Urine Glucose (UA) Negative Urine Ketones Negative Urine Blood 3+ H Urine Nitrite Negative Urine Bilirubin Negative Urine Urobilinogen 0.2 Ur Leukocyte Esterase 1+ H Urine WBC (Auto) Urine RBC (Auto) Urine RBC 10-20 Urine WBC 10-20 Ur Epithelial Cells Amorphous Urates 4+ Urine Bacteria 4+ Urine Mucus Urine Creatinine 08/11/18 08/12/18 08/12/18 19:35 01:00 01:00 WBC RBC Hgb Hct MCV MCH MCHC RDW Plt Count MPV Absolute Neuts (auto) Neutrophils % Lymphocytes % Monocytes % Eosinophils % Basophils % Nucleated RBC % PTT (Actin FS) Sodium 131 L Potassium 7.6 H* Chloride 103 Carbon Dioxide 9 L Anion Gap 19 H BUN 200 H* Creatinine 17.9 H* Creat Clearance w eGFR 3.01 Random Glucose 99 Hemoglobin A1c % Lactic Acid Uric Acid Calcium 5.9 L* Phosphorus Magnesium Ferritin Total Bilirubin Direct Bilirubin AST ALT Alkaline Phosphatase Creatine Kinase Creatine Kinase Index CK-MB (CK-2) B-Natriuretic Peptide Total Protein Albumin TSH Resin T3 Uptake Urine Color Ltyellow Urine Appearance Cloudy Urine pH 5.0 Ur Specific [place] 1.012 Urine Protein 2+ H 183 H Urine Glucose (UA) Negative Urine Ketones Negative Urine Blood 3+ H Urine Nitrite Negative Urine Bilirubin Negative Urine Urobilinogen Negative Ur Leukocyte Esterase 1+ H Urine WBC (Auto) 51 Urine RBC (Auto) 51 Urine RBC Urine WBC Ur Epithelial Cells Few Amorphous Urates 1+ Urine Bacteria Rare Urine Mucus Rare Urine Creatinine 124.0 08/12/18 08/12/18 08/12/18 01:30 01:30 01:30 WBC RBC Hgb Hct MCV MCH MCHC RDW Plt Count MPV Absolute Neuts (auto) Neutrophils % Lymphocytes % Monocytes % Eosinophils % Basophils % Nucleated RBC % PTT (Actin FS) 28.2 Sodium Potassium Chloride Carbon Dioxide Anion Gap BUN Creatinine Creat Clearance w eGFR Random Glucose Hemoglobin A1c % Lactic Acid 0.1 L Uric Acid Calcium Phosphorus 13.0 H* Magnesium 1.9 Ferritin Total Bilirubin Direct Bilirubin AST ALT Alkaline Phosphatase Creatine Kinase Creatine Kinase Index CK-MB (CK-2) B-Natriuretic Peptide Total Protein Albumin TSH Resin T3 Uptake Urine Color Urine Appearance Urine pH Ur Specific [place] Urine Protein Urine Glucose (UA) Urine Ketones Urine Blood Urine Nitrite Urine Bilirubin Urine Urobilinogen Ur Leukocyte Esterase Urine WBC (Auto) Urine RBC (Auto) Urine RBC Urine WBC Ur Epithelial Cells Amorphous Urates Urine Bacteria Urine Mucus Urine Creatinine 08/12/18 08/12/18 08/12/18 01:30 01:30 01:30 WBC RBC Hgb Hct MCV MCH MCHC RDW Plt Count MPV Absolute Neuts (auto) Neutrophils % Lymphocytes % Monocytes % Eosinophils % Basophils % Nucleated RBC % PTT (Actin FS) Sodium 134 L Potassium 6.6 H* Chloride 103 Carbon Dioxide 14 L Anion Gap 17 H BUN 169 H* Creatinine 17.3 H* Creat Clearance w eGFR 3.13 Random Glucose 94 Hemoglobin A1c % 5.6 Lactic Acid Uric Acid Calcium 5.5 L* Phosphorus Magnesium Ferritin 859.6 H Total Bilirubin Direct Bilirubin AST ALT Alkaline Phosphatase Creatine Kinase Creatine Kinase Index CK-MB (CK-2) B-Natriuretic Peptide 966.0 H Total Protein Albumin TSH Resin T3 Uptake Urine Color Urine Appearance Urine pH Ur Specific [place] Urine Protein Urine Glucose (UA) Urine Ketones Urine Blood Urine Nitrite Urine Bilirubin Urine Urobilinogen Ur Leukocyte Esterase Urine WBC (Auto) Urine RBC (Auto) Urine RBC Urine WBC Ur Epithelial Cells Amorphous Urates Urine Bacteria Urine Mucus Urine Creatinine 08/12/18 08/12/18 08/12/18 05:15 05:15 05:15 WBC 8.1 RBC 2.90 L Hgb 8.6 L Hct 24.9 L D MCV 86.1 MCH 29.8 MCHC 34.7 RDW 13.1 Plt Count 333 D MPV 8.0 Absolute Neuts (auto) 6.6 Neutrophils % 81.4 Lymphocytes % 9.7 Monocytes % 7.4 Eosinophils % 1.0 Basophils % 0.5 Nucleated RBC % 0 PTT (Actin FS) Sodium 134 L Potassium 4.1 Chloride 100 Carbon Dioxide 21 Anion Gap 13 BUN 121 H* Creatinine 13.5 H* Creat Clearance w eGFR 4.17 Random Glucose 96 Hemoglobin A1c % Lactic Acid Uric Acid 4.3 Calcium 6.3 L* Phosphorus 9.0 H* Magnesium Ferritin Total Bilirubin 0.7 Direct Bilirubin 0.3 H AST 170 H ALT 130 H Alkaline Phosphatase 47 Creatine Kinase Creatine Kinase Index CK-MB (CK-2) B-Natriuretic Peptide Total Protein 7.3 Albumin 3.0 L TSH 1.84 D Resin T3 Uptake 35.4 Urine Color Urine Appearance Urine pH Ur Specific [place] Urine Protein Urine Glucose (UA) Urine Ketones Urine Blood Urine Nitrite Urine Bilirubin Urine Urobilinogen Ur Leukocyte Esterase Urine WBC (Auto) Urine RBC (Auto) Urine RBC Urine WBC Ur Epithelial Cells Amorphous Urates Urine Bacteria Urine Mucus Urine Creatinine Active Medications Generic Name Dose Route Start Last Admin Trade Name Freq PRN Reason Stop Dose Admin Albuterol Sulfate 1 amp 08/11/18 20:51 Ventolin 0.083% Nebulizer Soln - NEB Q4H PRN SHORT OF BREATH/WHEEZING Chlorhexidine Gluconate 1 applic 08/12/18 22:00 Hibiclens For Decolonization - TP HS SHALINI Docusate Sodium 100 mg 08/11/18 22:00 08/12/18 06:30 Colace - PO 100 mg TID SHALINI Administration Fenofibric Acid 135 mg 08/11/18 21:00 08/12/18 01:17 Trilipix - PO Not Given DAILY SHALINI Heparin Sodium (Porcine) 5,000 unit 08/11/18 22:00 08/12/18 06:30 Heparin - SQ 5,000 unit TID SHALINI Administration Metoprolol Tartrate 50 mg 08/11/18 22:30 08/12/18 01:17 Lopressor - PO Not Given BID SHALINI Mupirocin 1 applic 08/12/18 01:00 08/12/18 01:18 Bactroban Ointment (For Decolonization) - NS 08/17/18 00:59 Not Given BID SHALINI Senna 2 tab 08/11/18 21:46 Senna - PO HS PRN CONSTIPATION CBC, BMP 08/12/18 05:15 08/12/18 05:15 ASSESSMENT/PLAN: 38 yr old man with CKD, obesity presents with LE weakness found to have acute renal failure with sever hyperkalemia requiring urgent dialysis. # Renal * GRACIA on CKD with hyperkalemia with proteinuria * tolerated HD lAST NIGHT WITH no complications * Another HD today * renal ultrasound, and urine studies for further evaluation of acute decline * boyd monitoring for UOP * -nephro consult: #Hematology * chronic normochromic normocytic anemia * leukocytsis likely reactive, low suspicion for infection #Endocrine * A1c normal 5.6 * TSH NORMAL #GI * transminitis: maybe congestive hepatapothy, trend post-HD * F/U hepatitis panel #Rheum * gout, uloric on hold due to gracia * check uric acid # Card * does not take his demadex and has not taken his bystolic in "some time", * low BP post-dialysis, hold home diovan due to renal dysfxn * lopressor 25mg po bid # Proph * heparin SQ TID * GI: No Needed for now #FEN * Fluids, NS @ 125 CC/hr * monitor electrolytes, replinished as needed , Hyperphosphatemia treated with phoslo * Low sodium renal diet , Hyperkalemia resolved # Full code # Dispo * transfer to M/S Visit type - Emergency Visit Emergency Visit: Yes ED Registration Date: 08/11/18 Care time: The patient presented to the Emergency Department on the above date and was hospitalized for further evaluation of their emergent condition. - New Patient This patient is new to me today: Yes Date on this admission: 08/11/18 - Critical Care Critical Care patient: Yes Total Critical Care Time (in minutes): 45 Critical Care Statement: The care of this patient involved high complexity decision making to prevent further life threatening deterioration of the patient 's condition and/or to evaluate & treat vital organ system(s) failure or risk of failure.
[2018-08-12] MEDS ORDERED: NAPH,MB-DB/K PH,MBDB POWDER PACKET PO ONE (08:30)
--- NOTE | 2018-08-12 09:41 | PN ---
Progress Note, Physician Chief Complaint: PATIENT SEEN AND EXAMINED EVENTS AND NOTES REVIEWED C/O LEG CRAMPS - Current Medication List Current Medications: Active Medications Albuterol Sulfate (Ventolin 0.083% Nebulizer Soln -) 1 amp NEB Q4H PRN PRN Reason: SHORT OF BREATH/WHEEZING Calcium Acetate (Phoslo -) 667 mg PO TIDCM [facility] Chlorhexidine Gluconate (Hibiclens For Decolonization -) 1 applic TP HS [facility] Docusate Sodium (Colace -) 100 mg PO TID [facility] Last Admin: 08/12/18 06:30 Dose: 100 mg Fenofibric Acid (Trilipix -) 135 mg PO DAILY [facility] Last Admin: 08/12/18 01:17 Dose: Not Given Heparin Sodium (Porcine) (Heparin -) 5,000 unit SQ TID [facility] Last Admin: 08/12/18 06:30 Dose: 5,000 unit Metoprolol Tartrate (Lopressor -) 50 mg PO BID [facility] Last Admin: 08/12/18 09:26 Dose: 50 mg Mupirocin (Bactroban Ointment (For Decolonization) -) 1 applic NS BID [facility] Stop: 08/17/18 00:59 Last Admin: 08/12/18 01:18 Dose: Not Given Senna (Senna -) 2 tab PO HS PRN PRN Reason: CONSTIPATION - Objective Vital Signs: Vital Signs Temperature 98.8 F 08/12/18 06:00 Pulse Rate 97 H 08/12/18 06:00 Respiratory Rate 18 08/12/18 06:00 Blood Pressure 139/75 08/12/18 08:00 O2 Sat by Pulse Oximetry (%) 97 08/11/18 23:40 Constitutional: Yes: Mild Distress Eyes: Yes: WNL HENT: Yes: WNL Neck: Yes: WNL Cardiovascular: Yes: WNL Respiratory: Yes: WNL Gastrointestinal: Yes: Abdomen, Obese Genitourinary: Yes: WNL Musculoskeletal: Yes: Back Pain Extremities: Yes: WNL Integumentary: Yes: WNL Wound/Incision: Yes: Clean/Dry Neurological: Yes: WNL ...Motor Strength: WNL Psychiatric: Yes: WNL Labs: CBC, BMP 08/12/18 05:15 08/12/18 05:15 Problem List - Problems (1) Acute renal failure Code(s): N17.9 - ACUTE KIDNEY FAILURE, UNSPECIFIED (2) Anemia Code(s): D64.9 - ANEMIA, UNSPECIFIED (3) CKD (chronic kidney disease) stage 5, GFR less than 15 ml/min Code(s): N18.5 - CHRONIC KIDNEY DISEASE, STAGE 5 (4) [place] cardiac risk >20% in next 10 years Code(s): Z91.89 - OTH PERSONAL RISK FACTORS, NOT ELSEWHERE CLASSIFIED (5) Gout Code(s): M10.9 - GOUT, UNSPECIFIED (6) HTN (hypertension) Code(s): I10 - ESSENTIAL (PRIMARY) HYPERTENSION (7) Hyperkalemia Code(s): E87.5 - HYPERKALEMIA (8) Hyperlipidemia Code(s): E78.5 - HYPERLIPIDEMIA, UNSPECIFIED (9) Morbid obesity Code(s): E66.01 - MORBID (SEVERE) OBESITY DUE TO EXCESS CALORIES (10) Sleep apnea Code(s): G47.30 - SLEEP APNEA, UNSPECIFIED Assessment/Plan ACCES FOR HD OBTAINED BY ICU TEAM NEPHROLOGY EVAL CHECK LABS DVT PROPHYLAXIS ASTHMA MEDS STARTED RENAL DIET NUTRITIONAL EVAL
[2018-08-12] MEDS ORDERED: FEBUXOSTAT 80 MG TAB PO SCH (10:00)
[2018-08-12] MEDS ORDERED: PT OWN MED DRAWER 7, Y5N ONE (10:27)
[2018-08-12] MEDS ORDERED: SODIUM CHLORIDE 1,000 ML IV SCH (10:30)
[2018-08-12 10:38] LABS: ACANTHOCYTES 1+; ANISOCYTOSIS 2+; MACROCYTOSIS 0; PLATELET ESTIMATE NORMAL; TARGET CELLS 1+; TEAR DROP CELLS 1+
--- NOTE | 2018-08-12 10:48 | PN ---
Progress Note (short form) - Note Progress Note: Renal follow up for GRACIA/CKD/Emergent dialysis Pt seen and examined in the ICU s/p emergent dialysis early this am, tolerated it well reports his legs feeling better no sob, cp, abd pain, N/V/D making urine in boyd reported sporadic NSAID use was on ARB at home Vital Signs Temperature 98.8 F 08/12/18 06:00 Pulse Rate 97 H 08/12/18 06:00 Respiratory Rate 18 08/12/18 09:00 Blood Pressure 139/75 08/12/18 08:00 O2 Sat by Pulse Oximetry (%) 97 08/12/18 09:00 Intake & Output 08/09/18 08/10/18 08/11/18 08/12/18 23:59 23:59 23:59 23:59 Intake Total 800 Output Total 600 Balance 200 Weight 178.715 kg NAD awake and alert neck supple, no JVD RRR, No M/R Dec BS, no rales obese, NT/ND boyd in place no LE edema, clubbing or cyanosis CBC, BMP 08/12/18 05:15 08/12/18 05:15 Laboratory Tests 08/12/18 08/12/18 08/12/18 01:00 05:15 05:15 Uric Acid 4.3 Calcium 6.3 L* Phosphorus 9.0 H* Albumin 3.0 L Urine Protein 183 H Urine Creatinine 124.0 Current Medications Albuterol Sulfate (Ventolin 0.083% Nebulizer Soln -) 1 amp NEB Q4H PRN PRN Reason: SHORT OF BREATH/WHEEZING Calcium Acetate (Phoslo -) 667 mg PO TIDCM [facility] Chlorhexidine Gluconate (Hibiclens For Decolonization -) 1 applic TP HS [facility] Docusate Sodium (Colace -) 100 mg PO TID [facility] Last Admin: 08/12/18 06:30 Dose: 100 mg Epoetin Juwan (Epogen -) 10,000 unit IVPUSH ONCE ONE Stop: 08/12/18 10:21 Febuxostat (Uloric -) 80 mg PO DAILY [facility] Fenofibric Acid (Trilipix -) 135 mg PO DAILY [facility] Last Admin: 08/12/18 09:37 Dose: 135 mg Heparin Sodium (Porcine) (Heparin -) 5,000 unit SQ TID [facility] Last Admin: 08/12/18 06:30 Dose: 5,000 unit Sodium Chloride (Normal Saline -) 250 mls @ 3,000 mls/hr IV PRN PRN PRN Reason: Hypotension during Dialysis Stop: 08/13/18 10:20 Sodium Chloride (Normal Saline -) 1,000 mls @ 125 mls/hr IV ASDIR [facility] Metoprolol Tartrate (Lopressor -) 50 mg PO BID [facility] Last Admin: 08/12/18 09:26 Dose: 50 mg Mupirocin (Bactroban Ointment (For Decolonization) -) 1 applic NS BID [facility] Stop: 08/17/18 00:59 Last Admin: 08/12/18 01:18 Dose: Not Given Senna (Senna -) 2 tab PO HS PRN PRN Reason: CONSTIPATION This is a 38 year old gentleman with hx of CKD stage 4, Hypertension, obesity who presented with complaints of leg weakness and found to have hyperkalemia, severe acidosis and GRACIA vs. progressive CKD. #GRACIA vs. Progressive CKD #Hyperkalemia now improved s/p HD #Metabolic acidosis #acute vs. chronic anemia #Hypertension Reached out to primary internet network specialist Dr. Malia Gray [phone] to discuss case, awaiting call back with baseline labs and biopsy results will need additional HD today as BUN remains > 100 will start aggressive IVF hydration and monitor renal function Very high likelyhood that he will require longterm dialysis given his significant baseline CKD hold antihyertensives hold Uloric Avoid DAVID/ARB use given low eGFR Continue phos binder Renal diet Thank you will follow Dejan Dimas DO
[2018-08-12] MEDS: CALCIUM ACETATE 667 MG CAPSULE (FP) PO SCH ×2 (11:17→16:59)
--- NOTE | 2018-08-12 11:50 | ECHO ---
Name: LUCIANO ANTONIO Exam:Adult Echocardiogram Study Date: 08/12/2018 10:41 AM Age: 38 yrs Reason For Study: lv fn Height: 73 in Weight: 404 lb BSA: 2.9 m2 BP: 140/69 mmHg MMode/2D Measurements & Calculations IVSd: 1.2 cm Ao root diam: 4.3 cm LVIDd: 5.4 cm LA dimension: 4.5 cm LVIDs: 3.3 cm ACS: 2.5 cm LVPWd: 1.4 cm IVSs: 1.5 cm LVPWs: 1.5 cm EDV(Teich): 142.0 ml ESV(Teich): 43.3 ml Doppler Measurements & Calculations MV E max niko: 97.5 cm/sec Ao V2 max: 170.4 cm/sec MV A max niko: 78.2 cm/sec Ao max P.6 mmHg MV E/A: 1.2 Ao V2 mean: 115.2 cm/sec Ao mean P.2 mmHg Ao V2 VTI: 26.8 cm Med Peak E' Niko: 7.2 cm/sec Med E/e': 13.5 Lat Peak E' Niko: 12.8 cm/sec Lat E/e': 7.6 Procedure A two-dimensional transthoracic echocardiogram with color flow and Doppler was performed. The study w as technically difficult with many images being suboptimal in quality. Left Ventricle The left ventricular size, thickness and function are normal. The left ventricular ejection fraction is normal. Regional wall motion abnormalities cannot be excluded due to limited visualization. Right Ventricle The right ventricle is not well visualized. Tricuspid Valve The tricuspid valve is not well visualized. There is no tricuspid stenosis. There was insufficient TR detected to calculate RV systolic pressure. Aortic Valve The aortic valve is not well visualized. No hemodynamically significant valvular aortic stenosis. Tra ce aortic regurgitation. Pulmonic Valve The pulmonic valve is not well visualized. Great Vessels Mild aortic root dilatation. Pericardium/Pleura There is a mild pericardial effusion. Interpretation Summary The study was technically difficult with many images being suboptimal in quality. The left ventricular size, thickness and function are normal The left ventricular ejection fraction is normal. Regional wall motion abnormalities cannot be excluded due to limited visualization. There is a mild pericardial effusion. Mild aortic root dilatation. Trace aortic regurgitation. There was insufficient TR detected to calculate RV systolic pressure. MD Homer Schuster 08/12/2018 11:49 AM
[2018-08-12] MEDS ORDERED: SODIUM CHLORIDE 250 ML IV PRN ×2 (12:50→18:25)
[2018-08-12] MEDS ORDERED: EPOETIN ALFA 10,000 UNIT/1 ML VIAL IVPUSH ONE (12:50)
--- NOTE | 2018-08-12 13:07 | PN ---
Teaching Attending Note Name of Resident: Mark Ocasio ATTENDING PHYSICIAN STATEMENT I saw and evaluated the patient. I reviewed the resident's note and discussed the case with the resident. I agree with the resident's findings and plan as documented. SUBJECTIVE: Pt seen and examined in the ICU. s/p emergent HD with improving labs. No specific complaints. Less LE cramping. OBJECTIVE: Vital Signs Period Temp Pulse Resp BP Sys/Vargas Pulse Ox Last 24 Hr 97.5 F-98.8 F 79-109 16-28 92-152/43-96 96-100 Intake & Output 08/09/18 08/10/18 08/11/18 08/12/18 23:59 23:59 23:59 23:59 Intake Total 800 Output Total 600 Balance 200 Weight 178.715 kg Gen: NAD at rest Heart: RRR Lung: decreased breath sounds at the bases Abd: soft, nontender Ext: no edema CBC, BMP 08/12/18 05:15 08/12/18 05:15 Active Medications Albuterol Sulfate (Ventolin 0.083% Nebulizer Soln -) 1 amp NEB Q4H PRN PRN Reason: SHORT OF BREATH/WHEEZING Calcium Acetate (Phoslo -) 667 mg PO TIDCM [facility] Last Admin: 08/12/18 11:17 Dose: 667 mg Chlorhexidine Gluconate (Hibiclens For Decolonization -) 1 applic TP HS [facility] Docusate Sodium (Colace -) 100 mg PO TID [facility] Last Admin: 08/12/18 06:30 Dose: 100 mg Febuxostat (Uloric -) 80 mg PO DAILY [facility] Last Admin: 08/12/18 11:17 Dose: 80 mg Fenofibric Acid (Trilipix -) 135 mg PO DAILY [facility] Last Admin: 08/12/18 09:37 Dose: 135 mg Heparin Sodium (Porcine) (Heparin -) 5,000 unit SQ TID [facility] Last Admin: 08/12/18 06:30 Dose: 5,000 unit Sodium Chloride (Normal Saline -) 250 mls @ 3,000 mls/hr IV PRN PRN PRN Reason: Hypotension during Dialysis Stop: 08/13/18 12:49 Sodium Chloride (Normal Saline -) 1,000 mls @ 125 mls/hr IV ASDIR [facility] Last Admin: 01/30/19 10:45 Dose: 125 mls/hr Metoprolol Tartrate (Lopressor -) 50 mg PO BID [facility] Last Admin: 08/12/18 09:26 Dose: 50 mg Mupirocin (Bactroban Ointment (For Decolonization) -) 1 applic NS BID [facility] Stop: 08/17/18 00:59 Last Admin: 08/12/18 01:18 Dose: Not Given Senna (Senna -) 2 tab PO HS PRN PRN Reason: CONSTIPATION ASSESSMENT AND PLAN: Acute on Chronic Renal Failure Hyperkalemia Metabolic Acidosis HTN Morbid Obesity Anemia - HD per renal - monitor lytes - IVF - monitor urine output, creatinine - f/u renal biopsy from [facility] - PO as tolerated - DVT prophylaxis - can monitor on floor
--- NOTE | 2018-08-12 14:53 | EKG ---
Test Reason : Blood Pressure : / mmHG Vent. Rate : 106 BPM Atrial Rate : 106 BPM P-R Int : 178 ms QRS Dur : 104 ms QT Int : 366 ms P-R-T Axes : 047 032 036 degrees QTc Int : 486 ms SINUS TACHYCARDIA OTHERWISE NORMAL ECG WHEN COMPARED WITH ECG OF 11-AUG-2018 15:51, NO SIGNIFICANT CHANGE WAS FOUND Confirmed by EVAN MORGAN MD ([id number]) on 08/12/2018 2:53:28 PM Referred By: Compa SALCEDO Confirmed By:EVAN MORGAN MD
[2018-08-12] MEDS ORDERED: PROCHLORPERAZINE INJECTION 10 MG/2 ML VIAL IVPB ONE (15:45)
[2018-08-12] MEDS ORDERED: ALBUTEROL SO4 0.083% IH SOL 2.5 MG/3 ML VIAL.NEB. NEB PRN (18:25)
[2018-08-12] MEDS ORDERED: SENNOSIDES 8.6MG TABLET (FP) PO PRN (18:25)
[2018-08-12] MEDS: SODIUM CHLORIDE 1,000 ML IV SCH ×2 (18:46→20:30)
--- NOTE | 2018-08-12 19:03 | PN ---
Progress Note, Physician History of Present Illness: Pt is a 38yo man with a PMH of HTN, morbid obesity, CHF, HLD, KADE, CKD and chronic back pain that radiates down b/l LE who presents reporting worsening bilateral leg weakness over several days. He reports that he has been diagnosed with herniated discs in his low back and states that he chronically has low back and radiating lower extremity pain. The pain radiates from the upper thigh down the outside of his legs, and he has been experiencing this same pain recently. However, the weakness is new. He is able to stand and ambulate a few steps, but he reports that he feels "shaky" and as though he is going to fall down. He says that even when he is just sitting up, his arms shake if he needs to support himself. Mr Warner reports that he has been drinking significantly less fluid lately, and he also reports a recent GI illness with vomiting 1-2 weeks ago. However, he has not had any other recent symptoms. He reports that he has been taking all of his medications and has been feeling well. However, he is worried about his creatinine, which is normally around 4.5 or so as he feels dehydrated and has not seen his equipment superintendent (out [facility]) in a while for blood tests. - Current Medication List Current Medications: Active Medications Albuterol Sulfate (Ventolin 0.083% Nebulizer Soln -) 1 amp NEB Q4H PRN PRN Reason: SHORT OF BREATH/WHEEZING Calcium Acetate (Phoslo -) 667 mg PO TIDCM [facility] Docusate Sodium (Colace -) 100 mg PO TID [facility] Fenofibric Acid (Trilipix -) 135 mg PO DAILY [facility] Heparin Sodium (Porcine) (Heparin -) 5,000 unit SQ TID [facility] Sodium Chloride (Normal Saline -) 1,000 mls @ 125 mls/hr IV ASDIR [facility] Last Admin: 08/12/18 18:46 Dose: 125 mls/hr Metoprolol Tartrate (Lopressor -) 50 mg PO BID [facility] Senna (Senna -) 2 tab PO HS PRN PRN Reason: CONSTIPATION - Objective Vital Signs: Vital Signs Temperature 98.0 F 08/12/18 18:59 Pulse Rate 83 08/12/18 18:59 Respiratory Rate 18 08/12/18 18:59 Blood Pressure 146/86 08/12/18 18:59 O2 Sat by Pulse Oximetry (%) 100 08/12/18 17:36 Eyes: Yes: WNL, Conjunctiva Clear, EOM Intact HENT: Yes: WNL, Atraumatic, Normocephalic Neck: Yes: WNL, Supple, Trachea Midline Cardiovascular: Yes: WNL, Regular Rate and Rhythm Respiratory: Yes: WNL, Regular, CTA Bilaterally Gastrointestinal: Yes: WNL, Normal Bowel Sounds Genitourinary: Yes: WNL Musculoskeletal: Yes: WNL Extremities: Yes: WNL Edema: No Integumentary: Yes: WNL Neurological: Yes: WNL, Alert, Oriented ...Motor Strength: WNL Psychiatric: Yes: WNL Labs: CBC, BMP 08/12/18 05:15 08/12/18 05:15 Assessment/Plan - Problems (1) Renal failure Assessment/Plan: For urgent hemodialysis. Code(s): N19 - UNSPECIFIED KIDNEY FAILURE (2) Morbid obesity Code(s): E66.01 - MORBID (SEVERE) OBESITY DUE TO EXCESS CALORIES (3) Hyperlipidemia Assessment/Plan: on Triplix for hypertriglyceridemia. Start statin, if not already on it, if LFTs normalize from present elevated levels (were normal in 2017); keep LDL cholesterol < 70 mg/dL (was > 90 in 2016) . Code(s): E78.5 - HYPERLIPIDEMIA, UNSPECIFIED (4) CHF (congestive heart failure) Assessment/Plan: On metoprolol (hx Bystolic use). ARB held (hyperkalemia; renal failure). Pt has been on Demedex. F/u ECHO for LVEF, wall thicknesses and motion; valve status. Code(s): I50.9 - HEART FAILURE, UNSPECIFIED (5) HTN (hypertension) Assessment/Plan: On metoprolol. ACEI held (renal failure; hyperkalemia). For ECHO: check LVEF, wall thickness and motion; valve status, chamber sizes. Code(s): I10 - ESSENTIAL (PRIMARY) HYPERTENSION (6) Hyperkalemia Assessment/Plan: K+ : 8.2. EKG: NSR; peaked T waves. Per ER, pt has been given IV glucose D50, sodium bicarbonate, IV calcium,, insulin, Kayexalate. F/u K+; repeat above combination if necessary. Pt requires emergency hemodialysis. Code(s): E87.5 - HYPERKALEMIA (7) Hypocalcemia Assessment/Plan: replete. Code(s): E83.51 - HYPOCALCEMIA (8) Sleep apnea Assessment/Plan: Treatment per manager commission. Code(s): G47.30 - SLEEP APNEA, UNSPECIFIED (9) [place] cardiac risk >20% in next 10 years Assessment/Plan: F/u records from [facility]. If not done recently, will require coronary artery evaluation when stable. Code(s): Z91.89 - OTH PERSONAL RISK FACTORS, NOT ELSEWHERE CLASSIFIED cc time spent 37 min
--- NOTE | 2018-08-12 19:10 | EKG ---
Test Reason : Blood Pressure : / mmHG Vent. Rate : 096 BPM Atrial Rate : 096 BPM P-R Int : 186 ms QRS Dur : 106 ms QT Int : 388 ms P-R-T Axes : 036 024 029 degrees QTc Int : 490 ms NORMAL SINUS RHYTHM WITH 1ST DEGREE A-V BLOCK PROLONGED QT ABNORMAL ECG NO PREVIOUS ECGS AVAILABLE Confirmed by CATHY CARLISLE, EVAN ([id number]) on 08/12/2018 7:09:47 PM Referred By: Lucero GRAY Confirmed By:EVAN MORGAN MD
[2018-08-12] MEDS ORDERED: MUPIROCIN 2% TOPICAL OINTMENT FOR DECOLONIZATION NS SCH (22:00)
[2018-08-12] MEDS ORDERED: CHLORHEXIDINE GLUCONATE 4% CLEANSER FOR DECOLONIZATION TP SCH (22:00)
[2018-08-13 04:16] LABS: HBSAG SCREEN Negative (Negative); HEP B CORE AB, TOT Negative (Negative)
[2018-08-13] MEDS: SODIUM CHLORIDE 1,000 ML IV SCH (05:20)
[2018-08-13] MEDS: HEPARIN NA (PORCINE) 5,000 UNITS/ML 1ML VIAL SQ SCH ×2 (05:53→14:23)
[2018-08-13] MEDS: DOCUSATE SODIUM 100 MG CAPSULE (FP) PO SCH ×3 (05:53→21:49)
[2018-08-13 07:44] LABS: BASO % 0.1 % (0-2.0); EOS % 0.1 % (0-4.5); HEMATOCRIT 24.3 % (35.4-49); HEMOGLOBIN 8.2 GM/dL (11.7-16.9); LYMPH % 9.2 % (8-40); MCH 29.8 pg (25.7-33.7); MEAN CELL VOLUME 87.6 fl (80-96); MEAN PLT VOLUME 8.3 fl (7.5-11.1); MONO % 3.8 % (3.8-10.2); NEUT % 86.8 % (42.8-82.8); PLATELET COUNT 289 K/MM3 (134-434); RBC 2.77 M/mm3 (4.00-5.60); WHITE BLOOD COUNT 7.2 K/mm3 (4.0-10.0)
[2018-08-13] MEDS ORDERED: CALCIUM ACETATE 667 MG CAPSULE (FP) PO SCH (08:00)
[2018-08-13 08:08] LABS: ALBUMIN 2.8 g/dl (3.4-5.0); ALK PHOS 42 U/L (45-117); ANION GAP 13 MMOL/L (8-16); BILIRUBIN,TOTAL 0.6 mg/dL (0.2-1); BLOOD UREA NITROGEN 95 mg/dL (7-18); CHLORIDE 105 mmol/L (98-107); CO2 23 mmol/L (21-32); GLUCOSE,RANDOM 116 mg/dL (74-106); POTASSIUM 4.3 mmol/L (3.5-5.1); SGOT/AST 98 U/L (15-37); SGPT/ALT 104 U/L (13-61); SODIUM 140 mmol/L (136-145); TOT PROT 6.8 g/dl (6.4-8.2)
[2018-08-13 08:27] LABS: CREATININE 12.2 mg/dL (0.55-1.3)
[2018-08-13 08:28] LABS: CALCIUM 6.2 mg/dL (8.5-10.1); PHOSPHOROUS > 9.0 mg/dL (2.5-4.9)
[2018-08-13] MEDS ORDERED: FENOFIBRIC ACID 135 MG CAP PO SCH (10:00)
[2018-08-13 10:07] LABS: ACANTHOCYTES 0; ANISOCYTOSIS 0; HELMET CELLS 0; HOWELL-JOLLY BODIES 0; MACROCYTOSIS 0; OVALOCYTE 0; PLATELET ESTIMATE NORMAL; ROULEAU 0; SICKELED CELLS 0; TARGET CELLS 0; TEAR DROP CELLS 0; TOXIC GRANULATION 0
[2018-08-13] MEDS ORDERED: PANTOPRAZOLE 40 MG TABLET (FP) PO SCH (10:15)
[2018-08-13] MEDS ORDERED: SODIUM CHLORIDE 1,000 ML IV SCH (10:15)
[2018-08-13] MEDS: METOPROLOL TARTRATE 50 MG TABLET (FP) PO SCH ×2 (10:28→21:49)
[2018-08-13] MEDS ORDERED: CALCITRIOL 0.25 MCG CAPSULE (FP) PO SCH (10:31)
[2018-08-13] MEDS ORDERED: ACETAMINOPHEN 325 MG TABLET (FP) PO PRN (10:31)
[2018-08-13] MEDS ORDERED: CALCIUM GLUCONATE 10% - 1,000 MG/10 ML VIAL IVPB ONE (11:00)
--- NOTE | 2018-08-13 11:00 | PN ---
Progress Note (short form) - Note Progress Note: Renal follow up for GRACIA/CKD/Emergent dialysis Pt seen and examined at the bedside has mild HYMAN that comes and goes no sob, cp, abd pain no N/V s/p HD yesterday Vital Signs Temperature 98.2 F 08/13/18 09:00 Pulse Rate 70 08/13/18 09:00 Respiratory Rate 20 08/13/18 09:00 Blood Pressure 151/80 08/13/18 09:00 O2 Sat by Pulse Oximetry (%) 95 08/12/18 21:00 Intake & Output 08/10/18 08/11/18 08/12/18 08/13/18 23:59 23:59 23:59 23:59 Intake Total 800 1638 1500 Output Total 522 123 8131 Balance 200 738 500 Weight 178.715 kg 183.342 kg 178.432 kg NAD awake and alert neck supple, no JVD RRR, No M/R Dec BS, no rales obese, NT/ND boyd in place no LE edema, clubbing or cyanosis CBC, BMP 08/13/18 06:40 08/13/18 06:40 Laboratory Tests 08/13/18 06:40 Calcium 6.2 L* Phosphorus > 9.0 H* Magnesium 2.0 Albumin 2.8 L Current Medications Acetaminophen (Tylenol -) 650 mg PO Q6H PRN PRN Reason: PAIN SCALE 1-5 Albuterol Sulfate (Ventolin 0.083% Nebulizer Soln -) 1 amp NEB Q4H PRN PRN Reason: SHORT OF BREATH/WHEEZING Calcitriol (Rocaltrol -) 0.5 mcg PO DAILY [facility] Calcium Acetate (Phoslo -) 1,334 mg PO TIDCM [facility] Calcium Gluconate (Calcium Gluconate 10% -) 1,000 mg IVPB ONCE ONE Stop: 08/13/18 10:32 Docusate Sodium (Colace -) 100 mg PO TID [facility] Last Admin: 08/13/18 05:53 Dose: 100 mg Fenofibric Acid (Trilipix -) 135 mg PO DAILY [facility] Last Admin: 08/13/18 10:28 Dose: 135 mg Heparin Sodium (Porcine) (Heparin -) 5,000 unit SQ TID [facility] Last Admin: 08/13/18 05:53 Dose: 5,000 unit Metoprolol Tartrate (Lopressor -) 50 mg PO BID [facility] Last Admin: 08/13/18 10:28 Dose: 50 mg Pantoprazole Sodium (Protonix -) 40 mg PO DAILY [facility] Last Admin: 08/13/18 10:28 Dose: 40 mg Senna (Senna -) 2 tab PO HS PRN PRN Reason: CONSTIPATION This is a 38 year old gentleman with hx of CKD stage 4, Hypertension, obesity who presented with complaints of leg weakness and found to have hyperkalemia, severe acidosis and GRACIA vs. progressive CKD. #Progressive CKD secondary to hypertensive nephrosclerosis now ESRD and dependent on dialysis #Hyperkalemia now improved s/p HD #Metabolic acidosis #acute vs. chronic anemia #Hypertension #Hypocalcemia/Hyperphosphatemia s/p HD yesterday, no urgent indication for treatment today will consult vascular surgery for tunneled catheter and AVF placement next dialysis due tomorrow will need outpatient dialysis placement Give calcium glouconate 1g IVPB and start calcitriol 0.5mcg for low calcium Increase Phoslo to 1334mg TID with meals Continue Metoprolol for BP, ideally pt should be started on DAVID/ARB once pt is getting steady dialysis will need Renal transplant evaluation as an outpatient will continue VINCE with HD for anemia Iron studies pending Dejan Dimas DO
--- NOTE | 2018-08-13 11:40 | SPA.PREOP ---
- PRE-OP NOTE Dx: Renal failure Planned Procedure: Permacath placement Surgeon: Dakota Gerber MD Last Vital Signs Temp Pulse Resp BP Pulse Ox 98.2 F 70 20 151/80 95 08/13/18 09:00 08/13/18 09:00 08/13/18 09:00 08/13/18 09:00 08/12/18 21:00 Lab Results WBC 7.2 K/mm3 (4.0-10.0) 08/13/18 06:40 RBC 2.77 M/mm3 (4.00-5.60) L 08/13/18 06:40 Hgb 8.2 GM/dL (11.7-16.9) L 08/13/18 06:40 Hct 24.3 % (35.4-49) L 08/13/18 06:40 MCV 87.6 fl (80-96) 08/13/18 06:40 MCHC 34.0 g/dl (32.0-35.9) 08/13/18 06:40 RDW 13.0 % (11.9-15.9) 08/13/18 06:40 Plt Count 289 K/MM3 (134-434) 08/13/18 06:40 Sodium 140 mmol/L (136-145) 08/13/18 06:40 Potassium 4.3 mmol/L (3.5-5.1) 08/13/18 06:40 Chloride 105 mmol/L (98-107) 08/13/18 06:40 Carbon Dioxide 23 mmol/L (21-32) 08/13/18 06:40 Anion Gap 13 MMOL/L (8-16) 08/13/18 06:40 BUN 95 mg/dL (7-18) H 08/13/18 06:40 Creatinine 12.2 mg/dL (0.55-1.3) H* 08/13/18 06:40 Random Glucose 116 mg/dL (74-106) H 08/13/18 06:40 Calcium 6.2 mg/dL (8.5-10.1) L* 08/13/18 06:40 - ASSESSMENT/PLAN 1. Make NPO after midnight except po meds 2. GI/DVT PPX 3. Medical optimization / clearance 4. Consent to be obtained by surgeon after risks, benefits and alternatives discussed with patient and or Health Care Proxy.
[2018-08-13] MEDS: CALCIUM ACETATE 667 MG CAPSULE (FP) PO SCH ×2 (11:46→18:37)
[2018-08-13 12:42] VITALS: BMI 51.8
--- NOTE | 2018-08-13 13:07 | PN ---
Progress Note, Physician Chief Complaint: patient seen and examined to go to OR t[facility] for permacath - Current Medication List Current Medications: Active Medications Acetaminophen (Tylenol -) 650 mg PO Q6H PRN PRN Reason: PAIN SCALE 1-5 Last Admin: 08/13/18 10:57 Dose: 650 mg Albuterol Sulfate (Ventolin 0.083% Nebulizer Soln -) 1 amp NEB Q4H PRN PRN Reason: SHORT OF BREATH/WHEEZING Calcitriol (Rocaltrol -) 0.5 mcg PO DAILY [facility] Last Admin: 08/13/18 11:45 Dose: 0.5 mcg Calcium Acetate (Phoslo -) 1,334 mg PO TIDCM [facility] Last Admin: 08/13/18 11:46 Dose: 1,334 mg Docusate Sodium (Colace -) 100 mg PO TID [facility] Last Admin: 08/13/18 05:53 Dose: 100 mg Fenofibric Acid (Trilipix -) 135 mg PO DAILY [facility] Last Admin: 08/13/18 10:28 Dose: 135 mg Heparin Sodium (Porcine) (Heparin -) 5,000 unit SQ TID [facility] Last Admin: 08/13/18 05:53 Dose: 5,000 unit Metoprolol Tartrate (Lopressor -) 50 mg PO BID [facility] Last Admin: 08/13/18 10:28 Dose: 50 mg Pantoprazole Sodium (Protonix -) 40 mg PO DAILY [facility] Last Admin: 08/13/18 10:28 Dose: 40 mg Senna (Senna -) 2 tab PO HS PRN PRN Reason: CONSTIPATION - Objective Vital Signs: Vital Signs Temperature 98.2 F 08/13/18 09:00 Pulse Rate 70 08/13/18 09:00 Respiratory Rate 20 08/13/18 09:00 Blood Pressure 151/80 08/13/18 09:00 O2 Sat by Pulse Oximetry (%) 95 08/12/18 21:00 Constitutional: Yes: Calm, Obese Cardiovascular: Yes: Regular Rate and Rhythm, S1, S2 Respiratory: Yes: CTA Bilaterally Neurological: Yes: Alert, Oriented Labs: CBC, BMP 08/13/18 06:40 08/13/18 06:40 Problem List - Problems (1) Acute renal failure Assessment/Plan: patient had HD yesterday to get permacath tmw by vascular ph pjoslo got calcium iv NPO tonight after midnight renal sono shows findings of chronic kidney disease Code(s): N17.9 - ACUTE KIDNEY FAILURE, UNSPECIFIED (2) Anemia Assessment/Plan: epogen with HD iron panel pending Code(s): D64.9 - ANEMIA, UNSPECIFIED (3) HTN (hypertension) Assessment/Plan: metoprolol Code(s): I10 - ESSENTIAL (PRIMARY) HYPERTENSION (4) Hyperkalemia Assessment/Plan: now improved Code(s): E87.5 - HYPERKALEMIA (5) Hyperlipidemia Assessment/Plan: check lipid profile on triplipix Code(s): E78.5 - HYPERLIPIDEMIA, UNSPECIFIED (6) Sleep apnea Assessment/Plan: bipap at night Code(s): G47.30 - SLEEP APNEA, UNSPECIFIED Assessment/Plan patient is cleared to go to OR in am for permacath placement hold Am heparin subq can give po meds in morning check BP prior to giving metoprolol
[2018-08-13 15:32] LABS: INR 1.23 (0.83-1.09); PROTHROMBIN TIME (PATIENT) 14.5 SEC (9.7-13.0)
[2018-08-14 03:14] LABS: SERUM IRON SATURATION 68 % (15-55); TOTAL IRON BINDING CAPACITY 247 ug/dL (250-450); UIBC 78 ug/dL (111-343)
[2018-08-14] MEDS: DOCUSATE SODIUM 100 MG CAPSULE (FP) PO SCH ×3 (06:50→22:17)
[2018-08-14] MEDS ORDERED: LIDOCAINE HCL 1%, 10 MG/ML (20ML VIAL) ONE (07:20)
[2018-08-14 07:37] LABS: CHOLESTEROL 142 mg/dL (50-200); HDL CHOLESTEROL 28 mg/dL (40-60); TRIGLYCERIDES 325 mg/dL (0-150)
[2018-08-14] MEDS: CALCIUM ACETATE 667 MG CAPSULE (FP) PO SCH ×3 (07:53→17:35)
[2018-08-14] MEDS ORDERED: ceFAZolin SODIUM 1 GM VIAL ONE (07:53)
[2018-08-14] MEDS ORDERED: MIDAZOLAM HCL 2 MG/2 ML SINGLE DOSE VIAL ONE (07:53)
[2018-08-14] MEDS ORDERED: LIDOCAINE HCL/PF 2% SDV 5ML VIAL ONE (07:53)
[2018-08-14] MEDS ORDERED: PROPOFOL 20 ML ONE (07:53)
[2018-08-14] MEDS ORDERED: ceFAZolin SODIUM 1 GM VIAL IVPB ONE (08:17)
[2018-08-14] MEDS ORDERED: LIDOCAINE HCL 1%, 10 MG/ML (20ML VIAL) NR ONE ×2 (08:25)
--- NOTE | 2018-08-14 08:46 | OP ---
Operative Note - Note: Operative Date: 08/14/18 Pre-Operative Diagnosis: Renal failure Operation: Placement Permacath Findings: Patent right IJV Implants: 23 cm Permacath Post-Operative Diagnosis: Same as Pre-op Surgeon: Dakota Gerber Anesthesiologist/GLASS DESIGNER: Darlene Moreno Anesthesia: Fractional
[2018-08-14] MEDS ORDERED: SENNOSIDES 8.6MG TABLET (FP) PO PRN (08:54)
[2018-08-14] MEDS ORDERED: ACETAMINOPHEN WITH CODEINE 300MG/30MG TABLET PO PRN (08:54)
[2018-08-14] MEDS ORDERED: ACETAMINOPHEN 325 MG TABLET (FP) PO PRN (08:54)
[2018-08-14] MEDS ORDERED: ALBUTEROL SO4 0.083% IH SOL 2.5 MG/3 ML VIAL.NEB. NEB PRN (08:54)
[2018-08-14] MEDS ORDERED: ONDANSETRON 4 MG/2 ML VIAL IVPUSH PRN (08:58)
[2018-08-14] MEDS ORDERED: SODIUM CHLORIDE 1,000 ML IV SCH (09:00)
--- NOTE | 2018-08-14 10:49 | OP ---
DATE OF OPERATION: 08/14/2018 SURGEON: Dakota Gerber MD PROCEDURE: Placement of PermCath. PREOPERATIVE DIAGNOSIS: Renal failure. POSTOPERATIVE DIAGNOSIS: Renal failure. ANESTHESIA: Fractional. ANESTHESIA: Darlene Moreno MD OPERATIVE PROCEDURE: Following routine patient identification, intravenous sedation was established. The right neck and chest were prepped with ChloraPrep. Timeout was performed. Lidocaine 1% was infiltrated in the base of the neck, and under ultrasound guidance the right jugular vein was cannulated with a Micropuncture needle. A microwire was advanced into the superior vena cava, and the needle was exchanged for a 5-Azeri catheter. A J-tip wire was then advanced into the right atrium. Additional Xylocaine was infiltrated on the chest wall. A stab wound was made, and the 23-cm tip-to-cuff PermCath was advanced through the tunneler in the subcutaneous plane to exit in the neck. The tract around the wire was dilated, and the introducer was placed over the wire into the superior vena cava. The wire and the dilator were removed. The tip of the catheter was passed through the introducer and positioned in the right atrium. The introducer was peeled away. Each lumen was aspirated for blood and flushed with saline and heparin solution. The neck wound was closed with 3-0 Vicryl subcuticular, and the catheter was sutured to the skin at the exit site with 3-0 nylon. Sterile dressings were applied and the patient was taken to the recovery room in stable condition. Maude RAMIREZ/[id number]
[2018-08-14] MEDS ORDERED: SODIUM CHLORIDE 250 ML IV PRN (11:06)
[2018-08-14] MEDS ORDERED: EPOETIN ALFA 20,000 UNIT/1 ML VIAL IVPUSH ONE (11:15)
[2018-08-14] MEDS: CALCITRIOL 0.25 MCG CAPSULE (FP) PO SCH (11:21)
[2018-08-14] MEDS: PANTOPRAZOLE 40 MG TABLET (FP) PO SCH (11:22)
[2018-08-14] MEDS: METOPROLOL TARTRATE 50 MG TABLET (FP) PO SCH ×2 (11:22→22:16)
--- NOTE | 2018-08-14 11:51 | PN ---
Progress Note, Physician - Current Medication List Current Medications: Active Medications Acetaminophen (Tylenol -) 650 mg PO Q6H PRN PRN Reason: PAIN SCALE 1-5 Acetaminophen/Codeine Phosphate (Tylenol # 3 -) 1 tab PO Q4H PRN PRN Reason: PAIN LEVEL 4 - 6 Albuterol Sulfate (Ventolin 0.083% Nebulizer Soln -) 1 amp NEB Q4H PRN PRN Reason: SHORT OF BREATH/WHEEZING Calcitriol (Rocaltrol -) 0.5 mcg PO DAILY [facility] Last Admin: 08/14/18 11:21 Dose: 0.5 mcg Calcium Acetate (Phoslo -) 1,334 mg PO TIDCM [facility] Last Admin: 08/14/18 11:22 Dose: 1,334 mg Docusate Sodium (Colace -) 100 mg PO TID [facility] Fenofibric Acid (Trilipix -) 135 mg PO DAILY [facility] Fentanyl (Sublimaze Injection -) 25 mcg IVPUSH [id number] PRN PRN Reason: PAIN-PACU ORDER X 4 DOSES ONLY Heparin Sodium (Porcine) (Heparin -) 5,000 unit SQ TID [facility] Sodium Chloride (Normal Saline -) 1,000 mls @ 75 mls/hr IV ASDIR [facility] Sodium Chloride (Normal Saline -) 250 mls @ 3,000 mls/hr IV PRN PRN PRN Reason: Hypotension during Dialysis Stop: 08/15/18 11:06 Metoprolol Tartrate (Lopressor -) 50 mg PO BID [facility] Last Admin: 08/14/18 11:22 Dose: 50 mg Ondansetron HCl (Zofran Injection) 4 mg IVPUSH Q6H PRN PRN Reason: NAUSEA AND/OR VOMITING Pantoprazole Sodium (Protonix -) 40 mg PO DAILY [facility] Last Admin: 08/14/18 11:22 Dose: 40 mg Senna (Senna -) 2 tab PO HS PRN PRN Reason: CONSTIPATION - Objective Vital Signs: Vital Signs Temperature 98.9 F 08/14/18 11:00 Pulse Rate 64 08/14/18 11:00 Respiratory Rate 18 08/14/18 11:00 Blood Pressure 156/76 08/14/18 11:00 O2 Sat by Pulse Oximetry (%) 96 08/14/18 10:15 Labs: CBC, BMP 08/13/18 06:40 08/13/18 06:40 INR, PTT INR 1.23 (0.83-1.09) H 08/13/18 14:20 Problem List - Problems (1) Acute renal failure Assessment/Plan: patient got permacath placed today renal sono shows findings of chronic kidney disease Operative Date: 08/14/18 Pre-Operative Diagnosis: Renal failure Operation: Placement Permacath Findings: Patent right IJV Implants: 23 cm Permacath Post-Operative Diagnosis: Same as Pre-op Surgeon: Dakota Gerber Anesthesiologist/MICROFILM OPERATOR: Darlene Moreno Anesthesia: Fractional Code(s): N17.9 - ACUTE KIDNEY FAILURE, UNSPECIFIED (2) Anemia Assessment/Plan: epogen with HD iron panel noted anemiaof chronic disease Code(s): D64.9 - ANEMIA, UNSPECIFIED (3) HTN (hypertension) Assessment/Plan: metoprolol Code(s): I10 - ESSENTIAL (PRIMARY) HYPERTENSION (4) Hyperkalemia Assessment/Plan: now improved Code(s): E87.5 - HYPERKALEMIA (5) Hyperlipidemia Assessment/Plan: check lipid profile on triplipix Code(s): E78.5 - HYPERLIPIDEMIA, UNSPECIFIED (6) Sleep apnea Assessment/Plan: bipap at night Code(s): G47.30 - SLEEP APNEA, UNSPECIFIED
--- NOTE | 2018-08-14 12:04 | DS ---
Physical Examination Vital Signs: Vital Signs Temperature 98.8 F 08/14/18 11:35 Pulse Rate 60 08/14/18 11:40 Respiratory Rate 18 08/14/18 11:40 Blood Pressure 188/96 H 08/14/18 11:40 O2 Sat by Pulse Oximetry (%) 96 08/14/18 10:15 Constitutional: Yes: Calm HENT: Yes: Other (permacath) Cardiovascular: Yes: Regular Rate and Rhythm, S1, S2 Respiratory: Yes: CTA Bilaterally Gastrointestinal: Yes: Normal Bowel Sounds, Soft, Abdomen, Obese Labs: CBC, BMP 08/13/18 06:40 08/13/18 06:40 Discharge Summary Reason For Visit: HYPERKALEMIA Current Active Problems Acute renal failure (Acute) Anemia (Acute) CHF (congestive heart failure) (Acute) CKD (chronic kidney disease) stage 5, GFR less than 15 ml/min (Acute) [place] cardiac risk >20% in next 10 years (Acute) Gout (Acute) HTN (hypertension) (Acute) Hyperkalemia (Acute) Hyperlipidemia (Acute) Hypocalcemia (Acute) Morbid obesity (Acute) Prophylactic measure (Acute) Renal failure (Acute) Sleep apnea (Acute) Hospital Course: 38yo man with a PMH of HTN, HLD, KADE, CKD and chronic back pain with radiculopathy presents to ED due to worsening malaise and paresthesias in b/l LEs. PT reports viral syndrome approximately two weeks ago where he experienced nausea, fever and chills. Symptoms resolved after rest and oral hydration. However, He reports cutting back on his oral intake due to his underlying kidney disease. Over the last three days, Mr. Warner reports "feeling unsteady" on his feet, associated with progressive paresthesias and generalized weakness. He has never experienced symptoms like this prior and Pt was taken to ED on the afternoon of 08/11 by a cousin. In ED vitals were HR 98bpm, BP 138/81, RR 18, T 97.5, O2 sat 99%. Routine labs: BUN/CR 195/18.5, K 8.2, Na 128, serum bicarb 8, calcium 5.7, AST/ ALT 153/109. CPK 8230 Insulin, dextrose, calcium gluconate, kayexalate for hyperkalemia. EKG SR 96bpm with peaked t waves. Nephrology was consulted for acute renal failure with hyperkalemia, recommendation was ICU admission for urgent dialysis. in hospital in ICu got emergent HD two session and potassium improved patient went to OR for permacath placement now to get regular HD Condition: Critical - Instructions Diet, Activity, Other Instructions: HD as outpatient FU with group home supervisor for outpatient stress test Follow up with dr enriqueta broussard renal doc Referrals: Saul Warner MD [Primary Care Provider] - Dejan Dimas MD [Staff Physician] - 1 Week Disposition: HOME - Home Medications Comprehensive Discharge Medication List: Ambulatory Orders Febuxostat [Uloric -] 80 mg PO DAILY 12/14/11 Valsartan [Diovan] 160 mg PO DAILY 12/14/11 Fenofibric Acid [Trilipix -] 135 mg PO DAILY 10/30/12 Nebivolol [Bystolic -] 10 mg PO DAILY 10/30/12 Torsemide [Demadex -] 20 mg PO ASDIR PRN 08/11/18
[2018-08-14 12:34] LABS: HEMATOCRIT 24.7 % (35.4-49); HEMOGLOBIN 8.3 GM/dL (11.7-16.9); MCHC 33.6 g/dl (32.0-35.9); MEAN CELL VOLUME 89.3 fl (80-96); MEAN PLT VOLUME 8.7 fl (7.5-11.1); PLATELET COUNT 296 K/MM3 (134-434); RBC 2.77 M/mm3 (4.00-5.60); RDW 12.8 % (11.9-15.9)
--- NOTE | 2018-08-14 13:52 | PN ---
Progress Note (short form) - Note Progress Note: Renal follow up for GRACIA/CKD/Emergent dialysis Pt seen and examined during dialysis BP stable, catheter with good flow pt without any acute complaints s/p permacath insertion this am Vital Signs Temperature 98.8 F 08/14/18 11:35 Pulse Rate 56 L 08/14/18 13:10 Respiratory Rate 18 08/14/18 13:10 Blood Pressure 187/86 H 08/14/18 13:10 O2 Sat by Pulse Oximetry (%) 96 08/14/18 10:15 Intake & Output 08/11/18 08/12/18 08/13/18 08/14/18 23:59 23:59 23:59 23:59 Intake Total 800 1638 2950 500 Output Total 531 118 1898 0 Balance 089 779 8038 500 Weight 178.715 kg 183.342 kg 178.262 kg 178.772 kg NAD awake and alert neck supple, no JVD RRR, No M/R Dec BS, no rales obese, NT/ND boyd in place no LE edema, clubbing or cyanosis CBC, BMP 08/14/18 11:40 Current Medications Acetaminophen (Tylenol -) 650 mg PO Q6H PRN PRN Reason: PAIN SCALE 1-5 Acetaminophen/Codeine Phosphate (Tylenol # 3 -) 1 tab PO Q4H PRN PRN Reason: PAIN LEVEL 4 - 6 Albuterol Sulfate (Ventolin 0.083% Nebulizer Soln -) 1 amp NEB Q4H PRN PRN Reason: SHORT OF BREATH/WHEEZING Calcitriol (Rocaltrol -) 0.5 mcg PO DAILY [facility] Last Admin: 08/14/18 11:21 Dose: 0.5 mcg Calcium Acetate (Phoslo -) 1,334 mg PO TIDCM [facility] Last Admin: 08/14/18 11:22 Dose: 1,334 mg Docusate Sodium (Colace -) 100 mg PO TID [facility] Fenofibric Acid (Trilipix -) 135 mg PO DAILY [facility] Fentanyl (Sublimaze Injection -) 25 mcg IVPUSH [id number] PRN PRN Reason: PAIN-PACU ORDER X 4 DOSES ONLY Furosemide (Lasix -) 80 mg PO DAILY [facility] Heparin Sodium (Porcine) (Heparin -) 5,000 unit SQ TID [facility] Sodium Chloride (Normal Saline -) 250 mls @ 3,000 mls/hr IV PRN PRN PRN Reason: Hypotension during Dialysis Stop: 08/15/18 11:06 Metoprolol Tartrate (Lopressor -) 50 mg PO BID [facility] Last Admin: 08/14/18 11:22 Dose: 50 mg Nifedipine (Procardia Xl -) 30 mg PO DAILY [facility] Ondansetron HCl (Zofran Injection) 4 mg IVPUSH Q6H PRN PRN Reason: NAUSEA AND/OR VOMITING Pantoprazole Sodium (Protonix -) 40 mg PO DAILY [facility] Last Admin: 08/14/18 11:22 Dose: 40 mg Senna (Senna -) 2 tab PO HS PRN PRN Reason: CONSTIPATION This is a 38 year old gentleman with hx of CKD stage 4, Hypertension, obesity who presented with complaints of leg weakness and found to have hyperkalemia, severe acidosis and GRACIA vs. progressive CKD. #Progressive CKD secondary to hypertensive nephrosclerosis now ESRD and dependent on dialysis #Hyperkalemia now improved s/p HD #Metabolic acidosis #acute vs. chronic anemia #Hypertension #Hypocalcemia/Hyperphosphatemia awaiting prior biopsy result from [facility] tolerating dialysis well this am at this time pt is dialysis dependent Continue BP control with Nifedpine ER 30mg daily, Metoprolol 50mg BID and Lasix 80mg Daily Continue Calcitriol 0.5mg and Phoslo with meals will continue VINCE and IV iron with outpatient dialysis [employer] Project Coordination Specialist follow up for renal diet education outpatient dialysis arranged for [facility] at [facility] on Friday Stable for discharge today Dejan Dimas DO
[2018-08-14 14:34] LABS: GLUCOSE,RANDOM 106 mg/dL (74-106)
[2018-08-14 14:35] LABS: ANION GAP 16 MMOL/L (8-16); CHLORIDE 103 mmol/L (98-107); CO2 22 mmol/L (21-32); POTASSIUM 4.3 mmol/L (3.5-5.1); SODIUM 141 mmol/L (136-145)
[2018-08-14 14:37] LABS: BLOOD UREA NITROGEN 118 mg/dL (7-18); CREATININE 13.8 mg/dL (0.55-1.3); PHOSPHOROUS 9.2 mg/dL (2.5-4.9)
[2018-08-14] MEDS: NIFEdipine E.R. 30 MG TABLET (FP) PO SCH (15:03)
[2018-08-14] MEDS: HEPARIN NA (PORCINE) 5,000 UNITS/ML 1ML VIAL SQ SCH ×2 (15:04→22:16)
[2018-08-14] MEDS: FENOFIBRIC ACID 135 MG CAP PO SCH (22:17)
[2018-08-15] MEDS: HEPARIN NA (PORCINE) 5,000 UNITS/ML 1ML VIAL SQ SCH (05:14)
[2018-08-15] MEDS: DOCUSATE SODIUM 100 MG CAPSULE (FP) PO SCH (05:15)
--- NOTE | 2018-08-15 07:22 | PN ---
Progress Note, Physician Chief Complaint: Pt A&Ox3; no chest pain or dyspnea. History of Present Illness: Pt is a 38yo man with a PMH of HTN, morbid obesity, diastolic CHF, HLD, KADE, CKD and chronic back pain that radiates down b/l LE who presents reporting worsening bilateral leg weakness over several days. He reports that he has been diagnosed with herniated discs in his low back and states that he chronically has low back and radiating lower extremity pain. The pain radiates from the upper thigh down the outside of his legs, and he has been experiencing this same pain recently. However, the weakness is new. He is able to stand and ambulate a few steps, but he reports that he feels "shaky" and as though he is going to fall down. He says that even when he is just sitting up, his arms shake if he needs to support himself. Mr Warner reports that he has been drinking significantly less fluid lately, and he also reports a recent GI illness with vomiting 1-2 weeks ago. However, he has not had any other recent symptoms. He reports that he has been taking all of his medications and has been feeling well. However, he is worried about his creatinine, which is normally around 4.5 or so as he feels dehydrated and has not seen his education teacher (out [facility]) in a while for blood tests. - Current Medication List Current Medications: Active Medications Acetaminophen (Tylenol -) 650 mg PO Q6H PRN PRN Reason: PAIN SCALE 1-5 Acetaminophen/Codeine Phosphate (Tylenol # 3 -) 1 tab PO Q4H PRN PRN Reason: PAIN LEVEL 4 - 6 Albuterol Sulfate (Ventolin 0.083% Nebulizer Soln -) 1 amp NEB Q4H PRN PRN Reason: SHORT OF BREATH/WHEEZING Calcitriol (Rocaltrol -) 0.5 mcg PO DAILY [facility] Last Admin: 08/14/18 11:21 Dose: 0.5 mcg Calcium Acetate (Phoslo -) 1,334 mg PO TIDCM [facility] Last Admin: 08/14/18 17:35 Dose: 1,334 mg Docusate Sodium (Colace -) 100 mg PO TID [facility] Last Admin: 08/15/18 05:15 Dose: Not Given Fenofibric Acid (Trilipix -) 135 mg PO DAILY [facility] Last Admin: 08/14/18 22:17 Dose: 135 mg Fentanyl (Sublimaze Injection -) 25 mcg IVPUSH [id number] PRN PRN Reason: PAIN-PACU ORDER X 4 DOSES ONLY Furosemide (Lasix -) 80 mg PO DAILY [facility] Heparin Sodium (Porcine) (Heparin -) 5,000 unit SQ TID [facility] Last Admin: 08/15/18 05:14 Dose: 5,000 unit Sodium Chloride (Normal Saline -) 250 mls @ 3,000 mls/hr IV PRN PRN PRN Reason: Hypotension during Dialysis Stop: 08/15/18 11:06 Metoprolol Tartrate (Lopressor -) 50 mg PO BID [facility] Last Admin: 08/14/18 22:16 Dose: 50 mg Nifedipine (Procardia Xl -) 30 mg PO DAILY [facility] Last Admin: 08/14/18 15:03 Dose: 30 mg Ondansetron HCl (Zofran Injection) 4 mg IVPUSH Q6H PRN PRN Reason: NAUSEA AND/OR VOMITING Pantoprazole Sodium (Protonix -) 40 mg PO DAILY [facility] Last Admin: 08/14/18 11:22 Dose: 40 mg Senna (Senna -) 2 tab PO HS PRN PRN Reason: CONSTIPATION - Objective Vital Signs: Vital Signs Temperature 98.2 F 08/15/18 05:45 Pulse Rate 64 08/15/18 05:45 Respiratory Rate 18 08/15/18 05:45 Blood Pressure 128/62 08/15/18 05:45 O2 Sat by Pulse Oximetry (%) 96 08/14/18 20:27 Labs: CBC, BMP 08/14/18 11:40 08/14/18 11:40 INR, PTT INR 1.23 (0.83-1.09) H 08/13/18 14:20 Problem List - Problems (1) Renal failure Code(s): N19 - UNSPECIFIED KIDNEY FAILURE (2) Morbid obesity Code(s): E66.01 - MORBID (SEVERE) OBESITY DUE TO EXCESS CALORIES (3) Hyperlipidemia Code(s): E78.5 - HYPERLIPIDEMIA, UNSPECIFIED (4) CHF (congestive heart failure) Code(s): I50.9 - HEART FAILURE, UNSPECIFIED (5) HTN (hypertension) Code(s): I10 - ESSENTIAL (PRIMARY) HYPERTENSION (6) Hyperkalemia Code(s): E87.5 - HYPERKALEMIA (7) Hypocalcemia Code(s): E83.51 - HYPOCALCEMIA (8) Sleep apnea Code(s): G47.30 - SLEEP APNEA, UNSPECIFIED (9) [place] cardiac risk >20% in next 10 years Code(s): Z91.89 - OTH PERSONAL RISK FACTORS, NOT ELSEWHERE CLASSIFIED
[2018-08-15] MEDS: CALCIUM ACETATE 667 MG CAPSULE (FP) PO SCH (08:04)
--- NOTE | 2018-08-15 09:53 | PN ---
Progress Note, Physician Chief Complaint: Pt A&Ox3; no chest pain or dyspnea. History of Present Illness: Pt is a 38 yo man with a PMH of HTN, morbid obesity, diastolic CHF, HLD, KADE, CKD and chronic back pain that radiates down b/l LE who presents reporting worsening bilateral leg weakness over several days. He reports that he has been diagnosed with herniated discs in his low back and states that he chronically has low back and radiating lower extremity pain. The pain radiates from the upper thigh down the outside of his legs, and he has been experiencing this same pain recently. However, the weakness is new. He is able to stand and ambulate a few steps, but he reports that he feels "shaky" and as though he is going to fall down. He says that even when he is just sitting up, his arms shake if he needs to support himself. Mr Warner reports that he has been drinking significantly less fluid lately, and he also reports a recent GI illness with vomiting 1-2 weeks ago. However, he has not had any other recent symptoms. He reports that he has been taking all of his medications and has been feeling well. However, he is worried about his creatinine, which is normally around 4.5 or so as he feels dehydrated and has not seen his affiliate marketing coordinator (out [facility]) in a while for blood tests. - Current Medication List Current Medications: Active Medications Acetaminophen (Tylenol -) 650 mg PO Q6H PRN PRN Reason: PAIN SCALE 1-5 Acetaminophen/Codeine Phosphate (Tylenol # 3 -) 1 tab PO Q4H PRN PRN Reason: PAIN LEVEL 4 - 6 Albuterol Sulfate (Ventolin 0.083% Nebulizer Soln -) 1 amp NEB Q4H PRN PRN Reason: SHORT OF BREATH/WHEEZING Calcitriol (Rocaltrol -) 0.5 mcg PO DAILY [facility] Last Admin: 08/14/18 11:21 Dose: 0.5 mcg Calcium Acetate (Phoslo -) 1,334 mg PO TIDCM [facility] Last Admin: 08/15/18 08:04 Dose: 1,334 mg Docusate Sodium (Colace -) 100 mg PO TID [facility] Last Admin: 08/15/18 05:15 Dose: Not Given Fenofibric Acid (Trilipix -) 135 mg PO DAILY [facility] Last Admin: 08/14/18 22:17 Dose: 135 mg Fentanyl (Sublimaze Injection -) 25 mcg IVPUSH [id number] PRN PRN Reason: PAIN-PACU ORDER X 4 DOSES ONLY Furosemide (Lasix -) 80 mg PO DAILY [facility] Heparin Sodium (Porcine) (Heparin -) 5,000 unit SQ TID [facility] Last Admin: 08/15/18 05:14 Dose: 5,000 unit Sodium Chloride (Normal Saline -) 250 mls @ 3,000 mls/hr IV PRN PRN PRN Reason: Hypotension during Dialysis Stop: 08/15/18 11:06 Metoprolol Tartrate (Lopressor -) 50 mg PO BID [facility] Last Admin: 08/14/18 22:16 Dose: 50 mg Nifedipine (Procardia Xl -) 30 mg PO DAILY [facility] Last Admin: 08/14/18 15:03 Dose: 30 mg Ondansetron HCl (Zofran Injection) 4 mg IVPUSH Q6H PRN PRN Reason: NAUSEA AND/OR VOMITING Pantoprazole Sodium (Protonix -) 40 mg PO DAILY [facility] Last Admin: 08/14/18 11:22 Dose: 40 mg Senna (Senna -) 2 tab PO HS PRN PRN Reason: CONSTIPATION - Objective Vital Signs: Vital Signs Temperature 98.2 F 08/15/18 05:45 Pulse Rate 64 08/15/18 05:45 Respiratory Rate 18 08/15/18 05:45 Blood Pressure 128/62 08/15/18 05:45 O2 Sat by Pulse Oximetry (%) 96 08/14/18 20:27 Labs: CBC, BMP 08/14/18 11:40 08/14/18 11:40 INR, PTT INR 1.23 (0.83-1.09) H 08/13/18 14:20 Problem List - Problems (1) Renal failure Code(s): N19 - UNSPECIFIED KIDNEY FAILURE (2) Morbid obesity Code(s): E66.01 - MORBID (SEVERE) OBESITY DUE TO EXCESS CALORIES (3) Hyperlipidemia Code(s): E78.5 - HYPERLIPIDEMIA, UNSPECIFIED (4) CHF (congestive heart failure) Code(s): I50.9 - HEART FAILURE, UNSPECIFIED (5) HTN (hypertension) Code(s): I10 - ESSENTIAL (PRIMARY) HYPERTENSION (6) Hyperkalemia Code(s): E87.5 - HYPERKALEMIA (7) Hypocalcemia Code(s): E83.51 - HYPOCALCEMIA (8) Sleep apnea Code(s): G47.30 - SLEEP APNEA, UNSPECIFIED (9) [place] cardiac risk >20% in next 10 years Code(s): Z91.89 - OTH PERSONAL RISK FACTORS, NOT ELSEWHERE CLASSIFIED
[2018-08-15] MEDS ORDERED: FUROSEMIDE 40 MG TABLET (FP) PO SCH (10:00)
[2018-08-15] MEDS: METOPROLOL TARTRATE 50 MG TABLET (FP) PO SCH (10:23)
[2018-08-15] MEDS: NIFEdipine E.R. 30 MG TABLET (FP) PO SCH (10:24)
[2018-08-15] MEDS: PANTOPRAZOLE 40 MG TABLET (FP) PO SCH (10:24)
[2018-08-15] MEDS: CALCITRIOL 0.25 MCG CAPSULE (FP) PO SCH (10:24)
[2018-08-15] MEDS: FENOFIBRIC ACID 135 MG CAP PO SCH (10:27)
[2018-08-15 10:28] LABS: HEMATOCRIT 23.9 % (35.4-49); MCH 29.7 pg (25.7-33.7); MCHC 33.5 g/dl (32.0-35.9); MEAN CELL VOLUME 88.7 fl (80-96); MEAN PLT VOLUME 8.6 fl (7.5-11.1); PLATELET COUNT 263 K/MM3 (134-434); RDW 12.7 % (11.9-15.9); WHITE BLOOD COUNT 11.4 K/mm3 (4.0-10.0)
[2018-08-15 10:59] LABS: ALBUMIN 2.8 g/dl (3.4-5.0); ALK PHOS 33 U/L (45-117); ANION GAP 13 MMOL/L (8-16); BILIRUBIN,TOTAL 0.4 mg/dL (0.2-1); BLOOD UREA NITROGEN 84 mg/dL (7-18); CALCIUM 7.4 mg/dL (8.5-10.1); CHLORIDE 101 mmol/L (98-107); CO2 26 mmol/L (21-32); GLUCOSE,RANDOM 118 mg/dL (74-106); POTASSIUM 3.7 mmol/L (3.5-5.1); SGOT/AST 44 U/L (15-37); SGPT/ALT 61 U/L (13-61); SODIUM 140 mmol/L (136-145); TOT PROT 6.4 g/dl (6.4-8.2)
[2018-08-15 11:10] LABS: CREATININE 10.4 mg/dL (0.55-1.3)
--- NOTE | 2018-08-15 11:23 | PN ---
Progress Note, Physician Chief Complaint: The patient seen in his room. Feeling well. No chest pains. No SOB. No urinary complaints. Had last HD yesterday. History of Present Illness: From admission day: Jamaal Warner is a 38yo man with a PMH of HTN, HLD, KADE, CKD, Gout and Chronic back pain that radiates down b/l LE who presents reporting worsening bilateral leg weakness over several days. He has herniated discs in his low back and states that he chronically has low back and radiating lower extremity pain. The pain radiates from the upper thigh down the outside of his legs, and he has been experiencing this same pain recently. The weakness is new. He is able to stand and ambulate a few steps, but he reports that he feels "shaky" and as though he is going to fall down. He says that even when he is just sitting up, his arms shake if he needs to support himself. He had a kidney biopsy at [facility] about 3 years ago, but had not followed up since. He is not quite sure of the biopsy results. He had not been seeing a Cryptographic Center Specialist [place]. His PCP is Dr. Warner and he also sees dr. Lozada. Mr Warner reports that he has been drinking significantly less fluid lately, and he also reports a recent GI illness with vomiting 1-2 weeks ago. However, he has not had any other recent symptoms. He reports that he has been taking all of his medications and has been feeling well. However, he is worried about his creatinine, which is normally around 4.5 or so as he feels dehydrated and has not seen his Cryptographic Center Specialist (out [facility] ) in a while for blood tests. the Renal Bx fro [facility] in 2016... FSGS Denies any urinary incontinence. no h/o hematuria. - Current Medication List Current Medications: Active Medications Acetaminophen (Tylenol -) 650 mg PO Q6H PRN PRN Reason: PAIN SCALE 1-5 Acetaminophen/Codeine Phosphate (Tylenol # 3 -) 1 tab PO Q4H PRN PRN Reason: PAIN LEVEL 4 - 6 Albuterol Sulfate (Ventolin 0.083% Nebulizer Soln -) 1 amp NEB Q4H PRN PRN Reason: SHORT OF BREATH/WHEEZING Calcitriol (Rocaltrol -) 0.5 mcg PO DAILY [facility] Last Admin: 08/15/18 10:24 Dose: 0.5 mcg Calcium Acetate (Phoslo -) 1,334 mg PO TIDCM [facility] Last Admin: 08/15/18 08:04 Dose: 1,334 mg Docusate Sodium (Colace -) 100 mg PO TID [facility] Last Admin: 08/15/18 05:15 Dose: Not Given Fenofibric Acid (Trilipix -) 135 mg PO DAILY [facility] Last Admin: 08/15/18 10:27 Dose: Not Given Fentanyl (Sublimaze Injection -) 25 mcg IVPUSH [id number] PRN PRN Reason: PAIN-PACU ORDER X 4 DOSES ONLY Furosemide (Lasix -) 80 mg PO DAILY [facility] Last Admin: 08/15/18 10:22 Dose: 80 mg Heparin Sodium (Porcine) (Heparin -) 5,000 unit SQ TID [facility] Last Admin: 08/15/18 05:14 Dose: 5,000 unit Metoprolol Tartrate (Lopressor -) 50 mg PO BID [facility] Last Admin: 08/15/18 10:23 Dose: 50 mg Nifedipine (Procardia Xl -) 30 mg PO DAILY [facility] Last Admin: 08/15/18 10:24 Dose: 30 mg Ondansetron HCl (Zofran Injection) 4 mg IVPUSH Q6H PRN PRN Reason: NAUSEA AND/OR VOMITING Pantoprazole Sodium (Protonix -) 40 mg PO DAILY [facility] Last Admin: 08/15/18 10:24 Dose: 40 mg Senna (Senna -) 2 tab PO HS PRN PRN Reason: CONSTIPATION - Objective Vital Signs: Vital Signs Temperature 98.2 F 08/15/18 05:45 Pulse Rate 64 08/15/18 05:45 Respiratory Rate 18 08/15/18 05:45 Blood Pressure 128/62 08/15/18 05:45 O2 Sat by Pulse Oximetry (%) 96 08/14/18 20:27 Constitutional: Yes: Well Nourished Eyes: Yes: Conjunctiva Clear HENT: Yes: Normocephalic Neck: Yes: Supple, Trachea Midline Cardiovascular: Yes: Regular Rate and Rhythm Respiratory: Yes: CTA Bilaterally, Diminished Gastrointestinal: Yes: Normal Bowel Sounds, Abdomen, Obese Genitourinary: No: Bladder Distention, CVA Tenderness - Left, CVA Tenderness - Right Neurological: Yes: Alert, Oriented Psychiatric: Yes: Alert, Oriented Labs: CBC, BMP 08/15/18 09:55 08/15/18 09:55 INR, PTT INR 1.23 (0.83-1.09) H 08/13/18 14:20 Problem List - Problems (1) CKD (chronic kidney disease) stage 5, GFR less than 15 ml/min Code(s): N18.5 - CHRONIC KIDNEY DISEASE, STAGE 5 (2) Hypocalcemia Code(s): E83.51 - HYPOCALCEMIA (3) Acute renal failure Code(s): N17.9 - ACUTE KIDNEY FAILURE, UNSPECIFIED (4) Hyperkalemia Code(s): E87.5 - HYPERKALEMIA (5) Anemia Code(s): D64.9 - ANEMIA, UNSPECIFIED Assessment/Plan This is a 38 y/o male with ESRD, underlying FSGS, admitted with uremia, hyperkalemia, and severe metabolic acidosis. Hemodialysis was done emergently and many times since admission. The patient has a Permacath for dialysis. To have AVF as outpatient. HD arranged at [facility] on 08/18/18. Schedule given to the patient. The patient may be discharged home. Will follow as outpatient. Thanks again. Jaimie Sanches MD
[2018-08-15 15:33] VITALS: BP 147/73; PULSE 65; TEMP 98.1
== END 2018-08-15 14:19 | disposition home or self-care (01) | DRG 683 ==
LOC: FER 14:50 → JICU 23:00 → J5S 08-12 18:25 → J7W 08-14 11:05
PROVIDERS: ADMIT Internal Medicine; ATTEND Family Medicine
PROC: 05HM33Z Insertion of Infusion Device into Right Internal Jugular Vein, Percutaneous Approach (ICD-10-PCS; 2018-08-12)
PROC: 5A1D70Z Performance of Urinary Filtration, Intermittent, Less than 6 Hours Per Day (ICD-10-PCS; 2018-08-14)
PROC: 02HV33Z Insertion of Infusion Device into Superior Vena Cava, Percutaneous Approach (ICD-10-PCS; principal; 2018-08-14 08:00)
DX: N17.9 Acute kidney failure, unspecified (principal); E87.2 Acidosis; Z68.43 Body mass index [BMI] 50.0-59.9, adult; I13.2 Hypertensive heart and chronic kidney disease with heart failure and with stage 5 chronic kidney disease, or end stage renal disease; E66.01 Morbid (severe) obesity due to excess calories; N18.6 End stage renal disease; G47.30 Sleep apnea, unspecified; E83.51 Hypocalcemia; I50.9 Heart failure, unspecified; E87.5 Hyperkalemia; E78.5 Hyperlipidemia, unspecified; E83.39 Other disorders of phosphorus metabolism; D64.9 Anemia, unspecified; R74.0 Nonspecific elevation of levels of transaminase and lactic acid dehydrogenase [LDH]; D72.829 Elevated white blood cell count, unspecified
CPT/HCPCS: 36415; 71045-TC-FY; 76000-TC-FY; 76705-TC; 76775-TC; 80048; 80053; 80061; 80076; 81003; 81015; 82436; 82550; 82553; 82570; 82728; 83036; 83540; 83550; 83605; 83721; 83735; 83880; 84100; 84156; 84443; 84479; 84480; 84550; 85025; 85027; 85610; 85730; 86038; 86704; 86706; 86708; 86803; 86850; 86900; 86901; 87086; 87340; 93005; 93010; 93306-TC; 94660; 94760; 99285-25; J0131; J0885; J1644; J7030

== ENCOUNTER 2018-09-07 14:17 | Day surgery (SDC) | payer OTHER ==
[2018-09-03 16:15] VITALS: BMI 52.0
[2018-09-07] MEDS ORDERED: PAPAVERINE HCL 30 MG/1 ML 10 ML VIAL NR ONE (14:43)
[2018-09-07] MEDS ORDERED: LIDOCAINE HCL 1%, 10 MG/ML (20ML VIAL) ONE (14:44)
[2018-09-07] MEDS ORDERED: HEPARIN NA (PORCINE) 5,000 UNITS/ML 1ML VIAL ONE (14:44)
[2018-09-07] MEDS ORDERED: POVIDONE-IODINE OINTMENT 10% - 28.4 GM TUBE ONE (14:44)
--- NOTE | 2018-09-07 17:12 | HP ---
[facility]ellite [facility] - Chief Complaint History of Present Illness: 38 year old man with ESRD on HD with Permacath. He needs AV access. History Source: Patient Limitations to Obtaining History: No Limitations - Past Medical History Allergies/Adverse Reactions: Allergies Allergy/AdvReac Type Severity Reaction Status Date / Time No Known Allergies Allergy Verified 09/03/18 16:02 Cardiovascular: Yes: HTN, Hyperlipdemia Renal/: Yes: Renal Failure, Hemodialysis Heme/Onc: Yes: Anemia Musculoskeletal: Yes: Chronic low back pain, Osteoarthritis Rheumatology: Yes: Gout ENT: Yes: Allergic Rhinitis - Current Medications Current Medications: Home Medications Medication Instructions Recorded Fenofibric Acid [Trilipix -] 135 mg PO DAILY 10/30/12 Calcitriol [Calcitriol -] 0.5 mcg PO DAILY #30 tab MDD 1 08/14/18 Calcium Acetate [Phoslo -] 1,334 mg PO TIDCM #30 capsule MDD 3 08/14/18 Furosemide [Lasix -] 80 mg PO DAILY #30 tablet MDD 1 08/14/18 Metoprolol Tartrate [Lopressor -] 50 mg PO BID #60 tablet MDD 2 08/14/18 Nifedipine ER [Procardia XL -] 30 mg PO DAILY #30 tab.er.24 MDD 1 08/14/18 Satellite Physical Exam - Physical Examination Vital Signs: Vital Signs Period Temp Pulse Resp BP Sys/Vargas Pulse Ox Last 24 Hr 99.5 F-99.5 F 102-102 20-20 117-117/90-90 99 General Appearance: Obese ENT: Clear Lung: Clear to auscultation Heart: Regular rate & rhythm Abdomen: Soft, No tenderness Extremities: No edema Satellite Impression/Plan - Impression/Plan Impression: ESRD Operative Procedure: Creation AV fistula left arm Date to be Performed: 09/07/18
[2018-09-07] MEDS ORDERED: LIDOCAINE HCL 1%, 10 MG/ML (20ML VIAL) NR ONE ×2 (17:52)
--- NOTE | 2018-09-07 18:55 | OP ---
Operative Note - Note: Operative Date: 09/07/18 Pre-Operative Diagnosis: ESRD Operation: Creation AV fistula left arm Findings: Patent cephalic vein and radial artery of forearm Post-Operative Diagnosis: Same as Pre-op Surgeon: Dakota Gerber Cigar Making Supervisor: Alberto Inman Anesthesiologist/DRAWER IN STITCH BONDING MACHINE: Clark Boss Anesthesia: Fractional
--- NOTE | 2018-09-07 18:59 | SURG ---
Surgery Sql Server Consultant Note Sql Server Consultant: Alberto Inman PA-C Date of Service: 09/07/18 Diagnosis: ESRD Procedure: Creation AV fistula left arm I was present for the entirety of the operative procedure. For further detail, please refer to operative report. Visit type - Case Type Case Type: Scheduled - New patient This patient is new to me today: Yes Date on this admission: 09/07/18
[2018-09-07] MEDS ORDERED: ONDANSETRON 4 MG/2 ML VIAL IVPUSH PRN (19:03)
[2018-09-07 19:32] VITALS: BP 139/89; PULSE 98; TEMP 98
[2018-09-07] MEDS ORDERED: ACETAMINOPHEN 325 MG TABLET (FP) PO PRN (19:37)
[2018-09-07] MEDS ORDERED: oxyCODONE HCL 5 MG TABLET PO PRN (19:37)
--- NOTE | 2018-09-10 12:12 | OP ---
DATE OF OPERATION: 09/07/2018 SURGEON: Dakota Quiroz MD ARABIC TRANSLATOR: DONELL Roberson PROCEDURE: Creation of arteriovenous fistula, left arm. PREOPERATIVE DIAGNOSIS: Renal failure. POSTOPERATIVE DIAGNOSIS: Renal failure. ANESTHESIA: Fractional. ANESTHESIOLOGIST: OPERATIVE FINDINGS: The cephalic vein and radial artery were patent in the distal forearm. OPERATIVE PROCEDURE: Following routine patient identification with side and site verification intravenous sedation was established. The left arm was prepped with ChloraPrep. Timeout was performed. Lidocaine 1% was infiltrated over the distal cephalic vein and radial artery. Skin incision was made over the vein and it was mobilized from the subcutaneous tissues. Cautery was used for hemostasis. The vein was ligated distally and incised. It was distended with heparin and papaverine solution. No. 5 and No. 8 feeding tubes were passed proximally without resistance. All side branches of the vein were ligated and divided and it was wrapped in moist gauze. The radial artery was then exposed through a parallel incision and encircled with vessel loops. Side branches were ligated and divided. The vein was then freed and passed through a short subcutaneous tunnel to lie next to the artery. Care was taken not to twist it. The artery was occluded with vessel loops and opened on the exposed surface with a 6-mm arteriotomy. The end of the vein was spatulated and anastomosed to the side of the artery with running suture of 6-0 Prolene. Prior to completion of the suture line the artery was allowed to backbleed and flush and the vein was flushed with heparin solution. Suture line was completed and all vessels were released. There was good flow through the anastomosis with a palpable thrill proximally in the vein. Bleeding from the suture line was controlled with Surgicel. When hemostasis was achieved the wound was closed with interrupted suture of 3-0 Vicryl and skin quynh. Sterile dressings were applied and the patient was taken to the recovery room in stable condition. DAKOTA QUIROZ M.D. [id number]
== END 2018-09-07 19:56 | disposition home or self-care (01) ==
LOC: JASU-SURG 14:17
PROVIDERS: ATTEND Surgery
PROC: 031C0ZF Bypass Left Radial Artery to Lower Arm Vein, Open Approach (ICD-10-PCS; principal; 2018-09-07 16:00)
DX: I12.0 Hypertensive chronic kidney disease with stage 5 chronic kidney disease or end stage renal disease (principal); N18.6 End stage renal disease
CPT/HCPCS: 36415; 84132; 94760; J1644

== ENCOUNTER 2021-10-22 09:48 | Inpatient (IN) | payer BC, OTHER ==
[2021-10-22] MEDS ORDERED: methylPREDNISolone NA SUCC 125 MG/2 ML VIAL ONE (09:50)
[2021-10-22] MEDS ORDERED: ALBUTEROL SO4 2.5/IPRATROPIUM 0.5 INH SOL 3 ML VIAL.NEB. NEB ONE (10:27)
[2021-10-22 11:01] LABS: ALBUMIN 3.8 g/dl (3.4-5.0); BILIRUBIN,TOTAL 0.9 mg/dl (0.2-1); CREATININE 13.5 mg/dl (0.55-1.3); TOT PROT 8.2 g/dl (6.4-8.2)
[2021-10-22] MEDS ORDERED: CALCIUM GLUCONATE 10% - 1,000 MG/10 ML VIAL IVPB ONE (11:34)
[2021-10-22] MEDS ORDERED: DEXTROSE 50%-WATER - 25 GM/50 ML VIAL IVPUSH ONE (11:37)
[2021-10-22] MEDS ORDERED: INSULIN REGULAR HUMAN 100 UNITS/ML *VIAL IVPUSH ONE (11:37)
[2021-10-22] MEDS ORDERED: INSULIN REGULAR HUMAN 100 UNITS/ML *VIAL ONE (11:46)
[2021-10-22] MEDS ORDERED: CALCIUM GLUCONATE 10% - 1,000 MG/10 ML VIAL ONE (11:46)
[2021-10-22] MEDS ORDERED: DEXTROSE 50%-WATER 25 GM/50 ML DISP.SYRIN ONE (11:46)
[2021-10-22 12:16] LABS: BASO % 0.8 % (0-2.0); EOS % 0.9 % (0-4.5); LYMPH % 13.9 % (8-40); MCHC 33.2 g/dl (32.0-35.9); MEAN CELL VOLUME 93.2 fl (80-96); MEAN PLT VOLUME 9.8 fl (7.5-11.1); MONO % 4.5 % (3.8-10.2); NEUT % 79.9 % (42.8-82.8); PLATELET COUNT 278 10^3/uL (134-434); RBC 3.54 M/mm3 (4.00-5.60); WHITE BLOOD COUNT 14.9 K/mm3 (4.0-10.0)
[2021-10-22 12:42] LABS: VENOUS BASE EXCESS -6.9 mmol/L (-2-2); VENOUS O2 SATURATION 98.2 % (70-80); VENOUS PCO2 40.5 mmHg (38-52); VENOUS PH 7.292 (7.310-7.410)
[2021-10-22 13:08] LABS: CALCIUM 10.3 mg/dl (8.5-10)
[2021-10-22] MEDS ORDERED: FUROSEMIDE 40 MG/4 ML INJECTABLE VIAL IVPUSH ONE (13:15)
[2021-10-22] MEDS ORDERED: FUROSEMIDE 100 MG/10 ML INJECTABLE VIAL ONE (13:26)
[2021-10-22] MEDS ORDERED: CEFTRIAXONE 1 GM in DEXTROSE 5%-WATER - 50 ML IVPB SCH (14:45)
[2021-10-22] MEDS ORDERED: AZITHROMYCIN IVPB 500 MG/250 ML BAG IVPB SCH (14:45)
[2021-10-22] MEDS ORDERED: AZITHROMYCIN 500 MG VIAL IVPB ONE (14:46)
[2021-10-22] MEDS ORDERED: cefTRIAXone SODIUM 1 GM VIAL ONE ×2 (14:46)
[2021-10-22] MEDS ORDERED: SODIUM CHLORIDE 250 ML IV PRN ×2 (16:00→17:15)
[2021-10-22] MEDS ORDERED: HEPARIN NA (PORCINE) 5,000 UNITS/ML 1ML VIAL IVPUSH ONE ×2 (16:00)
[2021-10-22 18:03] VITALS: BMI 46.5
[2021-10-22] MEDS: NIFEdipine E.R. 30 MG TABLET PO SCH (21:42)
[2021-10-22] MEDS: HEPARIN NA (PORCINE) 5,000 UNITS/ML 1ML VIAL SQ SCH (21:42)
[2021-10-22] MEDS ORDERED: NIFEdipine E.R. 30 MG TABLET PO SCH (22:00)
[2021-10-23] MEDS: HEPARIN NA (PORCINE) 5,000 UNITS/ML 1ML VIAL SQ SCH (05:38)
[2021-10-23] MEDS: FUROSEMIDE 40 MG TABLET (FP) PO SCH ×2 (05:39→14:17)
[2021-10-23] MEDS ORDERED: FUROSEMIDE 40 MG TABLET (FP) PO SCH (06:00)
[2021-10-23] MEDS ORDERED: HEPARIN NA (PORCINE) 5,000 UNITS/ML 1ML VIAL IVPUSH ONE (08:00)
[2021-10-23] MEDS ORDERED: HEPARIN NA (PORCINE) 5,000 UNITS/ML 1ML VIAL IVPUSH SCH (08:00)
[2021-10-23] MEDS ORDERED: cefTRIAXone SODIUM 1 GM VIAL ONE (09:23)
[2021-10-23] MEDS ORDERED: DEXTROSE 5%-WATER - 50 ML IVPB ONE (09:23)
[2021-10-23] MEDS ORDERED: CEFTRIAXONE 1 GM in DEXTROSE 5%-WATER - 50 ML IVPB SCH (10:00)
[2021-10-23] MEDS ORDERED: LISINOPRIL 20 MG TABLET PO SCH ×2 (10:00)
[2021-10-23] MEDS ORDERED: FENOFIBRIC ACID 135 MG CAP PO SCH ×2 (10:00)
[2021-10-23] MEDS ORDERED: ASPIRIN COATED 81 MG TABLET.EC PO SCH ×2 (10:00)
[2021-10-23] MEDS ORDERED: NEBIVOLOL 10 MG TABLET (FP) PO SCH ×2 (10:00)
[2021-10-23] MEDS: AZITHROMYCIN IVPB 500 MG/250 ML BAG IVPB SCH ×2 (12:24→14:10)
[2021-10-23] MEDS: NIFEdipine E.R. 30 MG TABLET PO SCH (12:29)
[2021-10-23] MEDS: hydrALAZINE HCL 50 MG TABLET (FP) PO SCH ×2 (12:29→14:09)
[2021-10-23] MEDS: SODIUM ZIRCONIUM CYCLOSILICATE (LOKELMA) 5 GM PACKET PO SCH ×2 (12:29→12:37)
[2021-10-23 12:47] LABS: BASO % 0.6 % (0-2.0); EOS % 0.9 % (0-4.5); HEMOGLOBIN 10.6 GM/dL (11.7-16.9); LYMPH % 19.6 % (8-40); MCH 31.4 pg (25.7-33.7); MCHC 34.2 g/dl (32.0-35.9); MEAN CELL VOLUME 91.9 fl (80-96); MONO % 7.6 % (3.8-10.2); NEUT % 71.3 % (42.8-82.8); PLATELET COUNT 230 10^3/uL (134-434); RBC 3.37 M/mm3 (4.00-5.60); RDW 15.9 % (11.9-15.9); WHITE BLOOD COUNT 9.4 K/mm3 (4.0-10.0)
[2021-10-23 13:01] LABS: CALCIUM 8.2 mg/dL (8.5-10.1)
[2021-10-23 13:02] LABS: ALBUMIN 3.2 g/dl (3.4-5.0)
[2021-10-23 13:05] LABS: CREATININE 6.1 mg/dL (0.55-1.3)
[2021-10-23 13:06] LABS: BILIRUBIN,TOTAL 0.5 mg/dL (0.2-1); TOT PROT 7.5 g/dl (6.4-8.2)
[2021-10-23] MEDS ORDERED: AZITHROMYCIN 250 MG TABLET PO SCH (13:15)
[2021-10-23 15:20] VITALS: BP 160/86; PULSE 76; TEMP 100
== END 2021-10-23 16:52 | disposition home or self-care (01) | DRG 189 ==
LOC: FER 09:48 → J4W 16:45
PROVIDERS: ADMIT Internal Medicine
DX: J96.21 Acute and chronic respiratory failure with hypoxia (principal); N18.6 End stage renal disease; I50.33 Acute on chronic diastolic (congestive) heart failure; Z68.42 Body mass index [BMI] 45.0-49.9, adult; I13.2 Hypertensive heart and chronic kidney disease with heart failure and with stage 5 chronic kidney disease, or end stage renal disease; I24.8 Other forms of acute ischemic heart disease; Z99.2 Dependence on renal dialysis; E78.5 Hyperlipidemia, unspecified; E66.01 Morbid (severe) obesity due to excess calories; G47.33 Obstructive sleep apnea (adult) (pediatric); E87.5 Hyperkalemia; E87.70 Fluid overload, unspecified
CPT/HCPCS: 36415; 71045-TC-FY; 80048; 80053; 82803; 82962; 83880; 84484; 85025; 86803; 87340; 93005; 93306-TC; 94660; 99291; C9803-CS; J1644; U0003; U0005